=== PATIENT | male | born 1935 | race Caucasian/White ===

== ENCOUNTER → 2016-09-01 | Outpatient (CLI) | payer MEDICARE, BC ==
[~2016-09-01] MED LIST: DRON400 PO; PRIN10TA PO; TOPR50TA PO; WARF2.5 PO; WARF5TAB PO
[2016-09-01 08:52] LABS: INTERNATIONAL NORMALIZED RATIO 2.4 RATIO; PROTHROMBIN TIME - PATIENT 27.4 SEC (9.8-11.6)
== END ==
LOC: PLAB 06:43
PROVIDERS: ATTEND Internal Medicine Cardiovascular Disease
DX: Z95.2 Presence of prosthetic heart valve (principal)
CPT/HCPCS: 36415; 85610

== ENCOUNTER → 2016-09-15 | Outpatient (CLI) | payer MEDICARE, BC ==
[2016-09-15 08:59] LABS: INTERNATIONAL NORMALIZED RATIO 2.8 RATIO; PROTHROMBIN TIME - PATIENT 32.1 SEC (9.8-11.6)
== END ==
LOC: PLAB 07:01
PROVIDERS: ATTEND Internal Medicine Cardiovascular Disease
DX: Z95.2 Presence of prosthetic heart valve (principal)
CPT/HCPCS: 36415; 85610

== ENCOUNTER → 2016-10-13 | Outpatient (CLI) | payer MEDICARE, BC ==
[2016-10-13 08:36] LABS: INTERNATIONAL NORMALIZED RATIO 2.9 RATIO
== END ==
LOC: PLAB 06:58
PROVIDERS: ATTEND Internal Medicine Cardiovascular Disease
DX: Z95.2 Presence of prosthetic heart valve (principal)
CPT/HCPCS: 36415; 85610

== ENCOUNTER → 2016-11-10 | Outpatient (CLI) | payer MEDICARE, BC ==
[2016-11-10 08:50] LABS: INTERNATIONAL NORMALIZED RATIO 2.2 RATIO
== END ==
LOC: PLAB 06:54
PROVIDERS: ATTEND Internal Medicine Cardiovascular Disease
DX: Z95.2 Presence of prosthetic heart valve (principal)
CPT/HCPCS: 36415; 85610

== ENCOUNTER → 2016-11-24 | Outpatient (CLI) | payer MEDICARE, BC ==
[2016-11-24 08:49] LABS: INTERNATIONAL NORMALIZED RATIO 2.3 RATIO; PROTHROMBIN TIME - PATIENT 25.9 SEC (9.8-11.6)
== END ==
LOC: PLAB 06:39
PROVIDERS: ATTEND Internal Medicine Cardiovascular Disease
DX: Z95.2 Presence of prosthetic heart valve (principal)
CPT/HCPCS: 36415; 85610

== ENCOUNTER → 2016-12-08 | Outpatient (CLI) | payer MEDICARE, BC ==
[2016-12-08 08:34] LABS: INTERNATIONAL NORMALIZED RATIO 2.9 RATIO; PROTHROMBIN TIME - PATIENT 33.8 SEC (9.8-11.6)
== END ==
LOC: PLAB 06:39
PROVIDERS: ATTEND Internal Medicine Cardiovascular Disease
DX: Z95.2 Presence of prosthetic heart valve (principal)
CPT/HCPCS: 36415; 85610

== ENCOUNTER → 2017-01-05 | Outpatient (CLI) | payer MEDICARE, BC ==
[2017-01-05 08:41] LABS: INTERNATIONAL NORMALIZED RATIO 3.1 RATIO; PROTHROMBIN TIME - PATIENT 36.3 SEC (9.8-11.6)
== END ==
LOC: PLAB 06:39
PROVIDERS: ATTEND Internal Medicine Cardiovascular Disease
DX: Z95.2 Presence of prosthetic heart valve (principal)
CPT/HCPCS: 36415; 85610

== ENCOUNTER → 2017-02-02 | Outpatient (CLI) | payer MEDICARE, BC ==
[2017-02-02 09:00] LABS: INTERNATIONAL NORMALIZED RATIO 3.7 RATIO; PROTHROMBIN TIME - PATIENT 43.3 SEC (9.8-11.6)
== END ==
LOC: PLAB 06:59
PROVIDERS: ATTEND Internal Medicine Cardiovascular Disease
DX: Z95.2 Presence of prosthetic heart valve (principal)
CPT/HCPCS: 36415; 85610

== ENCOUNTER → 2017-03-09 | Outpatient (CLI) | payer MEDICARE, BC ==
[2017-03-09 10:24] LABS: INTERNATIONAL NORMALIZED RATIO 2.8 RATIO; PROTHROMBIN TIME - PATIENT 32.1 SEC (9.8-11.6)
== END ==
LOC: PLAB 09:01
PROVIDERS: ATTEND Internal Medicine Cardiovascular Disease
DX: Z95.2 Presence of prosthetic heart valve (principal)
CPT/HCPCS: 36415; 85610

== ENCOUNTER → 2017-04-06 | Outpatient (CLI) | payer MEDICARE, BC ==
[2017-04-06 09:02] LABS: INTERNATIONAL NORMALIZED RATIO 3.4 RATIO; PROTHROMBIN TIME - PATIENT 39.6 SEC (9.8-11.6)
== END ==
LOC: PLAB 06:46
PROVIDERS: ATTEND Internal Medicine Cardiovascular Disease
DX: Z95.2 Presence of prosthetic heart valve (principal)
CPT/HCPCS: 36415; 85610

== ENCOUNTER → 2017-04-19 | Outpatient (CLI) | payer MEDICARE, BC ==
[2017-04-19 12:44] LABS: BICARBONATE 27.6 MEQ/L (21.0-32.0); POTASSIUM 4.2 MEQ/L (3.5-5.1)
== END ==
LOC: CLAB 11:59
PROVIDERS: ATTEND Internal Medicine Cardiovascular Disease
DX: I65.29 Occlusion and stenosis of unspecified carotid artery (principal)
CPT/HCPCS: 36415; 80048

== ENCOUNTER → 2017-05-11 | Outpatient (CLI) | payer MEDICARE, BC ==
[2017-05-11 09:03] LABS: INTERNATIONAL NORMALIZED RATIO 4.3 RATIO; PROTHROMBIN TIME - PATIENT 50.6 SEC (9.8-11.6)
== END ==
LOC: PLAB 06:44
PROVIDERS: ATTEND Internal Medicine Cardiovascular Disease
DX: Z95.2 Presence of prosthetic heart valve (principal)
CPT/HCPCS: 36415; 85610

== ENCOUNTER → 2017-05-18 | Outpatient (CLI) | payer MEDICARE, BC ==
[2017-05-18 08:55] LABS: INTERNATIONAL NORMALIZED RATIO 3.4 RATIO; PROTHROMBIN TIME - PATIENT 39.5 SEC (9.8-11.6)
== END ==
LOC: PLAB 06:56
PROVIDERS: ATTEND Internal Medicine Cardiovascular Disease
DX: Z95.2 Presence of prosthetic heart valve (principal)
CPT/HCPCS: 36415; 85610

== ENCOUNTER → 2017-06-01 | Outpatient (CLI) | payer MEDICARE, BC ==
[2017-06-01 08:46] LABS: INTERNATIONAL NORMALIZED RATIO 3.6 RATIO; PROTHROMBIN TIME - PATIENT 42.6 SEC (9.8-11.6)
== END ==
LOC: PLAB 06:45
PROVIDERS: ATTEND Internal Medicine Cardiovascular Disease
DX: Z95.2 Presence of prosthetic heart valve (principal)
CPT/HCPCS: 36415; 85610

== ENCOUNTER → 2017-06-29 | Outpatient (CLI) | payer MEDICARE, BC ==
[2017-06-29 09:06] LABS: INTERNATIONAL NORMALIZED RATIO 2.1 RATIO; PROTHROMBIN TIME - PATIENT 24.4 SEC (9.8-11.6)
== END ==
LOC: PLAB 06:51
PROVIDERS: ATTEND Internal Medicine Cardiovascular Disease
DX: Z95.2 Presence of prosthetic heart valve (principal)
CPT/HCPCS: 36415; 85610

== ENCOUNTER → 2017-07-06 | Outpatient (CLI) | payer MEDICARE, BC ==
[2017-07-06 08:45] LABS: PROTHROMBIN TIME - PATIENT 35.4 SEC (9.8-11.6)
== END ==
LOC: PLAB 06:42
PROVIDERS: ATTEND Internal Medicine Cardiovascular Disease
DX: Z95.2 Presence of prosthetic heart valve (principal)
CPT/HCPCS: 36415; 85610

== ENCOUNTER → 2017-08-02 | Outpatient (CLI) | payer MEDICARE, BC ==
[~2017-08-02] MED LIST changes: +CARD180C5 PO; +DILA2TAB4 PO; +DILT240C44 PO; +LISI10TA3 PO; +METO25TA3 PO; +MULT400T PO; +WARF-18 PO; +WARF-23 PO
[2017-08-02 09:10] LABS: PROTHROMBIN TIME - PATIENT 93.9 SEC (9.8-11.6)
[2017-08-02 09:34] LABS: INTERNATIONAL NORMALIZED RATIO 9.4 RATIO
== END ==
LOC: PLAB 06:41
PROVIDERS: ATTEND Internal Medicine Cardiovascular Disease
DX: Z95.2 Presence of prosthetic heart valve (principal)
CPT/HCPCS: 36415; 85610

== ENCOUNTER → 2017-08-03 | Outpatient (CLI) | payer MEDICARE, BC ==
[2017-08-03 09:00] LABS: PROTHROMBIN TIME - PATIENT 70.6 SEC (9.8-11.6)
[2017-08-03 09:23] LABS: INTERNATIONAL NORMALIZED RATIO 7.1 RATIO
[2017-08-03 10:00] LABS: HEMATOCRIT 32.8 % (39.0-51.0); REVIEW FLAG FINAL
== END ==
LOC: PLAB 06:48
PROVIDERS: ATTEND Internal Medicine Cardiovascular Disease
DX: I48.91 Unspecified atrial fibrillation (principal); Z95.2 Presence of prosthetic heart valve
CPT/HCPCS: 36415; 85014; 85018; 85610

== ENCOUNTER 2017-08-04 16:46 | Inpatient (IN) | payer MEDICARE, BC ==
[~2017-08-04] VITALS: Ht 175.3 cm; Wt 67.6 kg
[2017-08-04] VITALS (9 sets, daily range): BP systolic 149–224; BP diastolic 63–98; PULSE 89–121; RESP 16–18; TEMP 97.9–98.4; O2SAT 93–100
[~2017-08-04 16:46] MED LIST changes: -CARD180C5 PO; -DILA2TAB4 PO; -DILT240C44 PO; -LISI10TA3 PO; -METO25TA3 PO; -MULT400T PO; -WARF-18 PO; -WARF-23 PO
--- NOTE | 2017-08-04 17:22 | PD ---
HPI Chief Complaint: Lump, Cyst, Hernia Time Seen by Provider: 16:55 Travel History International Travel<30 days: No Contact w/Intl Traveler<30days: No History of Present Illness HPI 82yo M with PMH of afib, aortic valve replacement on coumadin, possible right carotid endartectomy, right inguinal hernia here with c/o pain in right inguinal hernia for 2 hours. Said he had a repair few years ago and he normally is able to push back but cant today. Denies any fever, chest pain, sob , n/v, abdominal pain, testicular pain, dysuria, hematuria, focal weakness or numbness. Dr. Pugh is his cash register operator. Pt was discharge from [facility] about 2 weeks ago. He is a poor historian. Said he was off coumadin for 3 days. PFSH Past Medical History Hx Anticoagulant Therapy: Yes (WARFRIN) Cardiovascular Problems: Yes (ARTIFICIAL VALVE) Chemotherapy: No Cerebrovascular Accident: No Diabetes: No Diminished Hearing: No Hypertension: Yes Respiratory: No Immunizations Current: No Past Surgical History Abdominal Surgery: Yes (LT INGUINAL HERNIA REPAIR) Body Medical Devices: ANUERSYM Cardiac Surgery: Yes (AORTIC VALVE REPLACED) Tonsillectomy: Yes Other Surgery: Yes (EXP LAP) Social History Alcohol Use: Yes (1 GLASS WINE, NIGHTLY WITH DINNER) Tobacco Use: No Substance Use: No Allergies-Medications (Allergen,Severity, Reaction): Coded Allergies: aspirin (Verified Allergy, Severe, Bleeding, 08/04/17) Reported Meds & Prescriptions Reported Meds & Active Scripts Active Reported Warfarin 5 Mg Tab 5 Mg PO WEEKLY Warfarin 2.5 Mg Tab 2.5 Mg PO DAILY Lisinopril 10 Mg Tab 10 Mg PO DAILY Multaq (Dronedarone) 400 Mg Tab 400 Mg PO BID Review of Systems Except as stated in HPI: all other systems reviewed are Neg Physical Exam Narrative GENERAL: 82yo M in mild distress. SKIN: Focused skin assessment warm/dry. HEAD: Atraumatic. Normocephalic. EYES: Pupils equal and round. No scleral icterus. No injection or drainage. CARDIOVASCULAR: Regular rate and rhythm. No murmur appreciated. RESPIRATORY: No accessory muscle use. Clear to auscultation. Breath sounds equal bilaterally. GASTROINTESTINAL: Abdomen soft, non-tender, nondistended. : +4cm by 3cm right inguinal mass that feels hard. Attempted to reduce it but unable to. No ttp bilateral testicles. MUSCULOSKELETAL: No obvious deformities. No clubbing. No cyanosis. No edema. NEUROLOGICAL: Awake and alert. No obvious cranial nerve deficits. Motor grossly within normal limits. Normal speech. PSYCHIATRIC: Appropriate mood and affect; insight and judgment normal. Data Data Last Documented VS Vital Signs Date Time Temp Pulse Resp B/P (MAP) Pulse Ox O2 Delivery O2 Flow Rate FiO2 08/04/17 18:59 104 16 187/72 (110) 94 Room Air 08/04/17 16:52 97.9 Orders Orders Complete Blood Count With Diff (08/04/17 17:20) Basic Metabolic Panel (Bmp) (08/04/17 17:20) Morphine Inj (Morphine Inj) (08/04/17 17:30) Prothrombin Time / Inr (Pt) (08/04/17 17:20) Act Partial Throm Time (Ptt) (08/04/17 17:20) Ct Abd/Pel W Iv Contrast(Rout) (08/04/17 ) Urinalysis - C+S If Indicated (08/04/17 18:02) Iohexol 350 Inj (Omnipaque 350 Inj) (08/04/17 18:33) Diltiazem Inj (Cardizem Inj) (08/04/17 19:15) Phytonadione Inj (Vitamin K Inj) (08/04/17 20:00) Fresh Frozen Plasma (Ffp) (08/04/17 19:22) Blood Product Administration (08/04/17 19:22) Sodium Chlor 0.9% 250 Ml Inj (Ns 250 Ml (08/04/17 19:30) Type And Screen (08/04/17 19:22) Patient Transfer (08/04/17 ) Admit Order (Ed Use Only) (08/04/17 19:26) Labs Laboratory Tests Test 08/04/17 17:20 08/04/17 18:15 White Blood Count 7.5 TH/MM3 Red Blood Count 3.20 MIL/MM3 Hemoglobin 11.0 GM/DL Hematocrit 33.4 % Mean Corpuscular Volume 104.4 FL Mean Corpuscular Hemoglobin 34.3 PG Mean Corpuscular Hemoglobin Concent 32.8 % Red Cell Distribution Width 14.1 % Platelet Count 271 TH/MM3 Mean Platelet Volume 7.2 FL Neutrophils (%) (Auto) 77.3 % Lymphocytes (%) (Auto) 11.5 % Monocytes (%) (Auto) 8.5 % Eosinophils (%) (Auto) 0.7 % Basophils (%) (Auto) 2.0 % Neutrophils # (Auto) 5.7 TH/MM3 Lymphocytes # (Auto) 0.9 TH/MM3 Monocytes # (Auto) 0.6 TH/MM3 Eosinophils # (Auto) 0.1 TH/MM3 Basophils # (Auto) 0.2 TH/MM3 CBC Comment DIFF FINAL Differential Comment Prothrombin Time 43.1 SEC Prothromb Time International Ratio 4.3 RATIO Activated Partial Thromboplast Time 46.7 SEC Blood Urea Nitrogen 13 MG/DL Creatinine 0.91 MG/DL Random Glucose 105 MG/DL Calcium Level 8.7 MG/DL Sodium Level 137 MEQ/L Potassium Level 3.9 MEQ/L Chloride Level 102 MEQ/L Carbon Dioxide Level 26.2 MEQ/L Anion Gap 9 MEQ/L Estimat Glomerular Filtration Rate 80 ML/MIN Urine Collection Type CLEAN CATCH Urine Color YELLOW Urine Turbidity CLEAR Urine pH 6.0 Urine Specific [place] 1.020 Urine Protein TRACE mg/dL Urine Glucose (UA) NEG mg/dL Urine Ketones 15 mg/dL Urine Occult Blood SMALL Urine Nitrite NEG Urine Bilirubin NEG Urine Leukocyte Esterase NEG Urine RBC 15-19 /hpf Urine Squamous Epithelial Cells 0-5 /hpf Microscopic Urinalysis Comment CULT NOT INDICATED Urine Collection Time 18:15 MDM Medical Decision Making Medical Screen Exam Complete: Yes Emergency Medical Condition: Yes Interpretation(s) EKG: Afib at 106bpm. TWI I, aVL, V6. Differential Diagnosis Incarcerated hernia vs. fat containing hernia vs. hematoma vs. pseudoaneurysm Narrative Course 82yo M with right inguinal hernia here with c/o painful lump in right groin for 2 hours today. Said he usually is able to push it back in but could not today. He did have a bowel movement prior to this. Labs reviewed, no leukocytosis. H/H 11/33.4 which is around baseline. BMP unremarkable. INR supratherapeutic at 4.3. UA showed small blood. RBC 15-19. Culture not indicated. Right inguinal mass feels hard and unable to manually reduce it. Will do CT a/p+ to further evaluate this mass. CT a/p showed right inguinal hernia containing loop of small bowel with associated at least partial small bowel obstruction. Bilateral pleural effusions, left greater than right. Pt reevaluated at bedside and HR is fluctuating between low 100s to high 120s. BP is elevated at 182/72. Pt given cardizem 20mg IV. Discussed with Dr. Block from general surgery at 19:07 and he recommends medicine admission, transfer to [facility] and reverse coagulopathy so he can do surgery. Vitamin K and FFP ordered. I discussed with bolt cutter Dr. Brizuela and he accepted him to his service. Pt reevaluated at bedside and HR is 80s-90, BP 172/95. Pt denies any chest pain or sob. Pt to be transferred to [facility]. Critical Care Narrative Aggregate critical care time was 40 minutes. Time to perform other separately billable procedures was not included in the critical care time. My time did not include minutes spent treating any other patients simultaneously or on activities that did not directly contribute to the patient's treatment. The services I provided to this patient were to treat and/or prevent clinically significant deterioration that could result in: cardiovascular collapse or . I provided critical care services requiring my management, as noted below: Chart data review, documentation time, medication orders and management, vital sign assessments/reviewing monitor data, ordering and reviewing lab tests, ordering and interpreting/reviewing x-rays and diagnostic studies, care of the patient and discussion of the patient with the admitting physicians. Diagnosis Primary Impression: Incarcerated hernia Additional Impressions: Supratherapeutic INR Atrial fibrillation with RVR Admitting Information Admitting Physician Requests: Admit Ana Andrews DO Aug 04, 2017 17:22
[2017-08-04] MEDS ORDERED: MORPHINE SULFATE 2 MG/ML INJ IV PUSH ONE (17:30)
[2017-08-04 17:32] LABS: AUTOMATED NEUTROPHIL # 5.7 TH/MM3 (1.8-7.7); BASOPHIL # 0.2 TH/MM3 (0-0.2); EOSINOPHIL # 0.1 TH/MM3 (0-0.4); EOSINOPHIL % 0.7 % (0.0-4.0); HEMATOCRIT 33.4 % (39.0-51.0); LYMPH % 11.5 % (9.0-44.0); LYMPHOCYTE # 0.9 TH/MM3 (1.0-4.8); MEAN CELL VOLUME 104.4 FL (80.0-100.0); MEAN CORPUSCULAR HEMOGLOBIN 34.3 PG (27.0-34.0); MEAN CORPUSCULAR HGB CONC 32.8 % (32.0-36.0); MONO % 8.5 % (0.0-8.0); NEUT % 77.3 % (16.0-70.0); PLATELET COUNT 271 TH/MM3 (150-450); RED CELL DISTRIBUTION WIDTH 14.1 % (11.6-17.2); WHITE BLOOD COUNT 7.5 TH/MM3 (4.0-11.0)
[2017-08-04 17:37] LABS: POTASSIUM 3.9 MEQ/L (3.5-5.1)
[2017-08-04 17:40] LABS: BICARBONATE 26.2 MEQ/L (21.0-32.0); HEMO FLAGS DIFF FINAL
[2017-08-04 17:44] LABS: APTT (PATIENT) 46.7 SEC (24.3-30.1); INTERNATIONAL NORMALIZED RATIO 4.3 RATIO; PROTHROMBIN TIME - PATIENT 43.1 SEC (9.8-11.6)
[2017-08-04] MEDS ORDERED: MULT400T PO ×2 (18:13)
[2017-08-04] MEDS ORDERED: WARF-18 PO ×2 (18:13)
[2017-08-04] MEDS ORDERED: WARF-23 PO ×2 (18:13)
[2017-08-04] MEDS ORDERED: LISI10TA3 PO ×2 (18:13)
[2017-08-04 18:20] LABS: BLOOD, URINE SMALL (NEG); GLUCOSE,URINE NEG (NEG); KETONE, URINE 15 mg/dL (NEG); NITRITE,URINE NEG (NEG)
[2017-08-04 18:24] LABS: METHOD OF COLLECTION CLEAN CATCH; RBC, URINE 15-19 /hpf (0-3); URINE COLOR YELLOW (YELLW/STRAW)
[2017-08-04 18:25] LABS: COMMENT (UR) CULT NOT INDICATED; CULTURE IF INDICATED CULT NOT INDICATED; SQUAMOUS EPITHELIAL CELL URINE 0-5 /hpf (0-5)
[2017-08-04] MEDS ORDERED: IOHEXOL 350 MG/ML 10 ML VIAL (for RAD DIAG) IVCONTRAST ONE (18:33)
--- NOTE | 2017-08-04 18:53 | RADRPT ---
EXAM DATE/TIME: 08/04/2017 18:21 [place] COMPARISON: No previous studies available for comparison. INDICATIONS : Right inguinal pain. Evaluate for right inguinal hernia. IV CONTRAST: 85 cc Omnipaque 350 (iohexol) IV ORAL CONTRAST: No oral contrast ingested. RADIATION DOSE: 6.04 CTDIvol (mGy) MEDICAL HISTORY : Cardiovascular disease. Hypertension. SURGICAL HISTORY : Carotid endarterectomy. Inguinal hernia repair.Aortic valve replacement. ENCOUNTER: Initial ACUITY: 1 day PAIN SCALE: 6/10 LOCATION: Right inguinal TECHNIQUE: Volumetric scanning of the abdomen and pelvis was performed. Using automated exposure control and ad justment of the mA and/or kV according to patient size, radiation dose was kept as low as reasonably achievable to obtain optimal diagnostic quality images. DICOM format image data is available electro nically for review and comparison. FINDINGS: There is a right-sided inguinal hernia containing a loop of small bowel. This is associated with some dilatation of distal small bowel loops characteristic of a partial small bowel obstruction. Bilateral pleural effusions, left greater than right pleural calcifications at the right lung base. B ibasilar atelectasis and scarring. No acute findings in the liver and spleen. Small low-attenuation lesions probably represent small cys ts. No acute findings in the adrenals, kidneys or pancreas. Gallstones present in gallbladder. CONCLUSION: 1. Right inguinal hernia containing loop of small bowel with associated at least partial small bowel obstruction. 2. Bilateral pleural effusions, left greater than right with basilar atelectasis and scarring and rig ht pleural calcifications. Manjinder Villatoro MD on August 04, 2017 at 18:47 Board Certified Radiologist. This report was verified electronically.
[2017-08-04] MEDS ORDERED: DILTIAZEM HCL 25 MG/5 ML VIAL IV ONE (19:15)
[2017-08-04] MEDS ORDERED: CHLORHEXIDINE GLUCONATE 2 % 1 PACK (2 CLOTHS) TOP PRN (19:30)
[2017-08-04] MEDS ORDERED: MISCELLANEOUS NURSING INFORMATION XX SCH (19:30)
[2017-08-04] MEDS ORDERED: SODIUM CHLOR 0.9% 250 ML INJ 250 ML IV ONE ×2 (19:30)
[2017-08-04] MEDS ORDERED: ONDANSETRON HCL 4 MG/2 ML VIAL IV PUSH PRN (19:30)
[2017-08-04] MEDS ORDERED: RESP: ALBUTEROL 2.5 MG/IPRATROPIUM 0.5 MG NEB (PRN) INH (19:30)
[2017-08-04] MEDS ORDERED: PHYTONADIONE INJ 10 MG in SODIUM CHLORIDE 0.9% INJ 50 ML IV ONE (20:00)
[2017-08-04] MEDS ORDERED: FUROSEMIDE 40 MG/4 ML VIAL IV PUSH ONE (21:00)
--- NOTE | 2017-08-04 23:23 | HHI.HP ---
[facility] Service Critical Care Medicine Primary Care Physician Thad Hackett MD Admission Diagnosis Incarcerated hernia, partial small bowel obstruction Diagnosis: Chief Complaint: abdominal pain Travel History International Travel<30 Days: No Contact w/Intl Traveler <30 Da: No Traveled to Known Affected Are: No History of Present Illness This is an 82yM with history of aortic valve replacement on chronic coumadin therapy who presents with 2 hours of right inguinal pain. He was found to have incarcerated hernia by CT evidence and clinical exam. He denies any symptoms of nausea, vomiting, but does endorse worsening abdominal pain. General surgery was consulted and is planning to take him for urgent operation in the morning. He has a supratherapeutic INR at 4.3. we have been asked to medically optimize the patient prior to urgent surgery. Of note, he does have a history of a recent right CEA ~ 2 weeks ago at [facility], which he had without complication. The patient is a poor historian and at times has trouble with his medical history. The patient states that his operations expert is Dr. Pugh and clears him for surgery before every case. He states he does not routinely walk up stairs, but he does state that yesterday he went to the mall and walked around "all day with no problem at all." denies any chest pain, dyspnea on exertion, shortness of breath. no changes in exercise tolerance, although he does remark that he does not find a need to climb stairs much. He does have a mechanical aortic valve and has recently been re-coumadinized from his CEA. Review of Systems Constitutional: DENIES: Diaphoretic episodes, Fatigue, Fever, Weight loss, Chills, Change in appetite Respiratory: DENIES: Apneas, Cough, Wheezing, Hemoptysis, Sputum production, Shortness of breath Cardiovascular: DENIES: Chest pain, Palpitations, Syncope, Dyspnea on Exertion , PND, Lower Extremity Edema Gastrointestinal: COMPLAINS OF: Abdominal pain, DENIES: Black stools, Bloody stools, Constipation, Diarrhea, Nausea, Vomiting Genitourinary: DENIES: Urinary frequency, Urinary incontinence, Testicular Pain , Testicular Swelling Neurologic: DENIES: Headache, Localized weakness Psychiatric: DENIES: Confusion Past Family Social History Allergies: Coded Allergies: aspirin (Verified Allergy, Severe, Bleeding, 08/04/17) Past Medical History Aortic valve replacement: mechanical Hypertension Past Surgical History left inguinal hernia repair aortic valve replacement tonsillectomy Reported Medications Warfarin 5 Mg Tab 5 Mg PO WEEKLY Warfarin 2.5 Mg Tab 2.5 Mg PO DAILY Lisinopril 10 Mg Tab 10 Mg PO DAILY Multaq (Dronedarone) 400 Mg Tab 400 Mg PO BID Review of Systems Except as stated in HPI: all other systems reviewed are Neg Physical Exam Narrative GENERAL: 82yo M in mild distress. SKIN: Focused skin assessment warm/dry. HEAD: Atraumatic. Normocephalic. EYES: Pupils equal and round. No scleral icterus. No injection or drainage. CARDIOVASCULAR: Regular rate and rhythm. No murmur appreciated. RESPIRATORY: No accessory muscle use. Clear to auscultation. Breath sounds equal bilaterally. GASTROINTESTINAL: Abdomen soft, non-tender, nondistended. : +4cm by 3cm right inguinal mass that feels hard. Attempted to reduce it but unable to. No ttp bilateral testicles. MUSCULOSKELETAL: No obvious deformities. No clubbing. No cyanosis. No edema. NEUROLOGICAL: Awake and alert. No obvious cranial nerve deficits. Motor grossly within normal limits. Normal speech. PSYCHIATRIC: Appropriate mood and affect; insight and judgment normal. Data Active Ordered Medications See MAR Family History reviewed and found to be noncontributory to his acute illness. Social History 1 glass of wine nightly with dinner. no tob, no doa. Physical Exam Vital Signs Vital Signs Date Time Temp Pulse Resp B/P (MAP) Pulse Ox O2 Delivery O2 Flow Rate FiO2 08/04/17 22:58 98.4 89 16 165/76 93 08/04/17 21:28 91 16 156/63 (94) 94 Room Air 08/04/17 18:59 104 16 187/72 (110) 94 Room Air 08/04/17 18:56 16 08/04/17 18:20 121 18 172/95 (120) 97 Room Air 08/04/17 17:45 118 149/89 (109) 97 Room Air 08/04/17 16:52 97.9 103 18 224/98 (140) 98 Room Air Physical Exam GENERAL: Elderly male, lying in bed, slight distress due to pain HEENT: Normocephalic. Atraumatic. Pupils equal, round, reactive, conjugate. Mucous membranes are moist NECK: Trachea is midline. There is no JVD. There is a well-healing incision over the right anterior neck consistent with a healing incision from a carotid endarterectomy CHEST: Equal chest rise. Nasal cannula oxygen. CARDIOVASCULAR: Normal rate, regular rhythm. ABDOMEN: Soft, mildly tender to palpation in the right lower quadrant below the inguinal ring, nondistended. No guarding. There is a small tender lump just inferior to the inguinal ring consistent with incarcerated loop of bowel. MUSCULOSKELETAL: Pulses 2+. No peripheral edema. NEUROLOGICAL: RASS 0. GCS 15. Follows commands. No focal deficits. Laboratory Laboratory Tests Test 08/04/17 17:20 08/04/17 18:15 White Blood Count 7.5 Red Blood Count 3.20 Hemoglobin 11.0 Hematocrit 33.4 Mean Corpuscular Volume 104.4 Mean Corpuscular Hemoglobin 34.3 Mean Corpuscular Hemoglobin Concent 32.8 Red Cell Distribution Width 14.1 Platelet Count 271 Mean Platelet Volume 7.2 Neutrophils (%) (Auto) 77.3 Lymphocytes (%) (Auto) 11.5 Monocytes (%) (Auto) 8.5 Eosinophils (%) (Auto) 0.7 Basophils (%) (Auto) 2.0 Neutrophils # (Auto) 5.7 Lymphocytes # (Auto) 0.9 Monocytes # (Auto) 0.6 Eosinophils # (Auto) 0.1 Basophils # (Auto) 0.2 CBC Comment DIFF FINAL Differential Comment Prothrombin Time 43.1 Prothromb Time International Ratio 4.3 Activated Partial Thromboplast Time 46.7 Blood Urea Nitrogen 13 Creatinine 0.91 Random Glucose 105 Calcium Level 8.7 Sodium Level 137 Potassium Level 3.9 Chloride Level 102 Carbon Dioxide Level 26.2 Anion Gap 9 Estimat Glomerular Filtration Rate 80 Urine Collection Type CLEAN CATCH Urine Color YELLOW Urine Turbidity CLEAR Urine pH 6.0 Urine Specific [place] 1.020 Urine Protein TRACE Urine Glucose (UA) NEG Urine Ketones 15 Urine Occult Blood SMALL Urine Nitrite NEG Urine Bilirubin NEG Urine Leukocyte Esterase NEG Urine RBC 15-19 Urine Squamous Epithelial Cells 0-5 Microscopic Urinalysis Comment CULT NOT INDICATED Urine Collection Time 18:15 Result Diagram: 08/04/17 1720 08/04/17 1720 Imaging Last Impressions Abdomen/Pelvis CT 08/04/17 0000 Signed Impressions: Service Date/Time: July 18:21 - CONCLUSION: 1. Right inguinal hernia containing loop of small bowel with associated at least partial small bowel obstruction. 2. Bilateral pleural effusions, left greater than right with basilar atelectasis and scarring and right pleural calcifications. Manjinder Villatoro MD Septic Shock Reassessment Septic shock perfusion: reassessment completed Caprini VTE Risk Assessment Caprini VTE Risk Assessment: Mod/High Risk (score >= 2) Caprini Risk Assessment Model Point Value = 1 Point Value = 2 Point Value = 3 Point Value = 5 Age 41-60 Minor surgery BMI > 25 kg/m2 Swollen legs Varicose veins or History of unexplained or recurrent spontaneous Oral contraceptives or hormone replacement Sepsis (< 1 month) Serious lung disease, including pneumonia (< 1 month) Abnormal pulmonary function Acute myocardial infarction Congestive heart failure (< 1 month) History of inflammatory bowel disease Medical patient at bed rest Age 61-74 Arthroscopic surgery Major open surgery (> 45 min) Laparoscopic surgery (> 45 min) Malignancy Confined to bed (> 72 hours) Immobilizing plaster cast Central venous access Age >= 75 History of VTE Family history of VTE Factor V Leiden Prothrombin [id number] Lupus anticoagulant Anticardiolipin antibodies Elevated serum homocysteine Heparin-induced thrombocytopenia Other congenital or acquired thrombophilia Stroke (< 1 month) Elective arthroplasty Hip, pelvis, or leg fracture Acute spinal cord injury (< 1 month) Prophylaxis Regimen Total Risk Factor Score Risk Level Prophylaxis Regimen 0-1 Low Early ambulation 2 Moderate Order ONE of the following: *Sequential Compression Device (SCD) *Heparin 5000 units SQ BID 3-4 Higher Order ONE of the following medications: *Heparin 5000 units SQ TID *Enoxaparin/Lovenox 40 mg SQ daily (WT < 150 kg, CrCl > 30 mL/min) *Enoxaparin/Lovenox 30 mg SQ daily (WT < 150 kg, CrCl > 10-29 mL/min) *Enoxaparin/Lovenox 30 mg SQ BID (WT < 150 kg, CrCl > 30 mL/min) AND/OR *Sequential Compression Device (SCD) 5 or more Highest Order ONE of the following medications: *Heparin 5000 units SQ TID (Preferred with Epidurals) *Enoxaparin/Lovenox 40 mg SQ daily (WT < 150 kg, CrCl > 30 mL/min) *Enoxaparin/Lovenox 30 mg SQ daily (WT < 150 kg, CrCl > 10-29 mL/min) *Enoxaparin/Lovenox 30 mg SQ BID (WT < 150 kg, CrCl > 30 mL/min) AND *Sequential Compression Device (SCD) Assessment and Plan Assessment and Plan Assessment: 82yM with aortic valve replacement on chronic anticoagulation with coumadin presents with incarcerated hernia. General surgery has been consulted. we will reverse anticoagulation with 4 units FFP and re-check INR. goal to get INR < 1.7 for OR in the AM. keep NPO. pain control with iv hydromorphone. admit to the floor. will dose lasix 40mg iv between FFP so as not to volume overload the patient. Regarding his pre-operative cardiac risk stratification: Patient has recently undergone major open vascular surgery without complication. He has not had any changes to his exercise tolerance and exhibits no signs of ACS or decompensated CHF. Technically, patient qualifies for 3 METs given his level of activity, but per report appears to be active without dyspneic symptoms limiting his activity. Patient would qualify as intermediate cardiac risk for an intermediate risk surgical procedure such as inguinal herniorrhaphy with possible small bowel resection. No additional information or pre-operative testing is necessary. Patient is medically cleared for urgent operation. Coumadin Coagulopathy - ffp x 4 units - recheck INR - daily INRs - goal INR < 1.7 for surgery tomorrow - vit k. Incarcerated Hernia - NPO - NG tube to LIWS - general surgery consult - plan for OR tomorrow Acute abdominal pain associated with incarcerated hernia - dilaudid 0.5 mg iv q4h prn Mechanical aortic valve replacement - will need re-coumadinization after surgery - at patient's request, will consult Dr. Pugh to follow along Hypertension - hold home anti-hypertensives in preparation for OR tomorrow. will restart as needed to keep normotensive. SCDs reversing anticoagulation. Admit to floor. will consult hospitalist service to assume care tomorrow. Code Status Full Code Discussed Condition With ER physician, Niko Prasad MD Aug 04, 2017 23:23
[2017-08-04] MEDS: HYDROmorphone HCL PF 2 MG/ML VIAL IV PUSH PRN (23:40)
[2017-08-05] VITALS (21 sets, daily range): BP systolic 105–190; BP diastolic 55–106; PULSE 86–120; RESP 16–22; TEMP 97.4–99.2; O2SAT 93–99
[2017-08-05] MEDS ORDERED: hydrALAZINE HCL 20 MG/ML VIAL IV ONE (02:45)
[2017-08-05 03:05] LABS: APTT (PATIENT) 30.1 SEC (24.3-30.1); INTERNATIONAL NORMALIZED RATIO 1.3 RATIO; PROTHROMBIN TIME - PATIENT 13.4 SEC (9.8-11.6)
[2017-08-05] MEDS: CHLORHEXIDINE GLUCONATE 2 % 1 PACK (2 CLOTHS) TOP SCH (04:00)
[2017-08-05] MEDS ORDERED: FUROSEMIDE 40 MG/4 ML VIAL IV PUSH ONE (04:00)
[2017-08-05] MEDS ORDERED: LACTATED RINGER'S 1000 ML IV PRN (05:00)
[2017-08-05] MEDS: HYDROmorphone HCL PF 2 MG/ML VIAL IV PUSH PRN ×2 (05:00→21:12)
[2017-08-05] MEDS ORDERED: CHLORHEXIDINE GLUCONATE 2 % 1 PACK (2 CLOTHS) TOPICAL PRN (05:00)
[2017-08-05] MEDS ORDERED: POVIDONE IODINE 5% (ANTISEPSIS KIT) 4 APPLICATIONS EACH NARE PRN (05:00)
[2017-08-05 06:01] LABS: HEMATOCRIT 32.2 % (39.0-51.0); MEAN CELL VOLUME 103.2 FL (80.0-100.0); MEAN CORPUSCULAR HEMOGLOBIN 35.9 PG (27.0-34.0); MEAN CORPUSCULAR HGB CONC 34.8 % (32.0-36.0); PLATELET COUNT 246 TH/MM3 (150-450); RED BLOOD COUNT 3.12 MIL/MM3 (4.50-5.90); RED CELL DISTRIBUTION WIDTH 14.2 % (11.6-17.2); REVIEW FLAG FINAL; WHITE BLOOD COUNT 10.7 TH/MM3 (4.0-11.0)
[2017-08-05] MEDS ORDERED: BUPIVACAINE/EPINEPHRINE 0.5% PF 30 ML VIAL ONE (06:32)
[2017-08-05] MEDS ORDERED: ceFAZolin INJ 1,000 MG VIAL ONE (07:00)
--- NOTE | 2017-08-05 08:03 | HHI.PR ---
cc: Manjinder Block MD Immediate Post Op Note Procedure Date: Aug 05, 2017 Pre Op Diagnosis: (1) Right groin mass (2) Atrial fibrillation with RVR (3) Supratherapeutic INR (4) Incarcerated hernia Post Op Diagnosis: (1) Incarcerated femoral hernia (2) Complicated unilateral incarcerated femoral hernia (3) Atrial fibrillation with RVR (4) Supratherapeutic INR (5) Incarcerated hernia Surgeon: Manjinder Block Bryologist(s): see or records Procedure: Repair of incarcerated right femoral hernia with plug Expiratory laparotomy to evaluate incarcerated bowel Findings: Incarcerated femoral hernia. Small bowel obstruction relieved with reduction of incarcerated hernia Anesthesia: General Drains: None IVF Patient to: PACU Patient Condition: Good Implant/Devices: SEE IMPLANT LOG (if applicable) Date/Time of Procedure: SEE SURGICAL CARE RECORD Manjinder Block MD Aug 05, 2017 08:03
[2017-08-05] MEDS ORDERED: DO NOT ADM ANY ANTICOAGULANT DRUGS PRN (08:17)
--- NOTE | 2017-08-05 08:58 | MB ---
cc: BETY BLOCK M.D. DATE OF CONSULTATION 08/05/2017 REASON FOR CONSULTATION Incarcerated hernia HISTORY This is an 82-year-old gentleman who came into the emergency room, was found to have an incarcerated hernia on the right groin. This was somewhat complicated by the fact that he is on Coumadin which is supratherapeutic with an INR of 4. He also is in atrial fibrillation with a rapid ventricular response. The other complicating factor is he has had an aortic valve replacement and recently had a carotid about two weeks ago. He came into the emergency room complaining of pain in his groin with some mild nausea. REVIEW OF SYSTEMS He has no fever, weight loss, chills, change in appetite. Respiratory, no shortness of breath or chest pain. He just has this groin pain. No neurologic or psychiatric problems, although he is slightly confused and a poor historian. PAST SURGICAL HISTORY 1. Aortic valve replacement 2. Hypertension 3. A right inguinal hernia 4. Left inguinal hernia with I believe a plug and patch. 5. He has a mechanical heart valve ALLERGIES HE IS ALLERGIC TO ASPIRIN. MEDICATIONS He takes: 1. Coumadin 2. Lisinopril 3. Dronedarone PHYSICAL EXAM On examination, he is an 82-year-old gentleman very thin, cooperative, poor historian anxious to get his hernia fixed. NECK: Supple. He has a carotid endarterectomy scar on the right side that is healing. CHEST: Clear. HEART: Irregularly irregular. ABDOMEN: Soft, numerous scars in the upper abdomen. He has had bilateral inguinal hernia scars. He has an incarcerated hernia, maybe femoral hernia. NEUROLOGIC: He is alert and oriented. LABORATORY DATA On laboratory data, he has a white count of 10, H&H 11/32. Chemistry is fairly normal. His INR was 4.3. Dr. Alfredo is correcting this. ASSESSMENT Incarcerated hernia on the right side. PLAN Operative intervention once his coagulopathy is reversed and his rate is controlled. Bety Block MD JSHON/KAROLINA /8:22 AM /8:33 AM
[2017-08-05] MEDS ORDERED: NEOSTIGMINE 5 MG/5 ML SYRINGE IV PUSH ONE (12:00)
[2017-08-05] MEDS ORDERED: PROPOFOL 200 MG/20 ML AMP IV ONE (12:00)
[2017-08-05] MEDS ORDERED: GLYCOPYRROLATE 1 MG/5 ML SYRINGE IV PUSH ONE (12:00)
[2017-08-05] MEDS ORDERED: DEXAMETHASONE SOD PHOS 4 MG/ML VIAL IV ONE (12:00)
[2017-08-05] MEDS ORDERED: ROCURONIUM INJ 50 MG/5 ML SYRINGE IV PUSH ONE (12:00)
[2017-08-05] MEDS ORDERED: METOPROLOL TARTRATE 5 MG/5 ML VIAL IV PUSH ONE (12:00)
[2017-08-05] MEDS ORDERED: ESMOLOL HCL 100 MG/10 ML VIAL IV ONE (12:00)
[2017-08-05] MEDS ORDERED: PHENYLEPHRINE HCL 10 MG/ML VIAL IV ONE (12:00)
[2017-08-05] MEDS ORDERED: ePHEDrine/NS 25 MG/5 ML SYRINGE IV ONE (12:00)
[2017-08-05] MEDS ORDERED: ONDANSETRON HCL 4 MG/2 ML VIAL IV ONE (12:00)
[2017-08-05] MEDS ORDERED: PHENYLEPH/NS 1000 MCG/10 ML SYR IV ONE (12:00)
--- NOTE | 2017-08-05 13:31 | HHI.PR ---
Subjective Remarks Follow-up incarcerated hernia, mechanical aortic valve replacement, hypertension. Patient had surgery today to repair the hernia and bowel obstruction. He is still somewhat sedated. States that his pain is well controlled. Objective Vitals Vital Signs Date Time Temp Pulse Resp B/P (MAP) Pulse Ox O2 Delivery O2 Flow Rate FiO2 08/05/17 12:00 97.5 103 18 146/79 (101) 98 08/05/17 11:50 Nasal Cannula 2.00 08/05/17 10:00 99 16 142/65 (90) 100 Nasal Cannula 2 08/05/17 09:45 97.9 95 16 132/68 (89) 100 Nasal Cannula 2 08/05/17 09:30 96 18 127/63 (84) 100 Nasal Cannula 2 08/05/17 09:15 99 18 132/70 (90) 100 Nasal Cannula 2 08/05/17 09:00 103 16 124/58 (80) 100 Nasal Cannula 2 08/05/17 08:45 97 14 125/56 (79) 100 Nasal Cannula 2 08/05/17 08:30 104 15 123/62 (82) 100 Nasal Cannula 2 08/05/17 08:15 98.1 111 14 134/64 (87) 100 Nasal Cannula 3 08/05/17 07:00 120 08/05/17 05:00 Room Air 08/05/17 04:37 120 08/05/17 04:00 97.4 105 20 110/58 (75) 93 08/05/17 03:35 97.4 108 22 105/55 (72) 93 08/05/17 02:54 08/05/17 02:35 102 16 181/106 (131) 99 Nasal Cannula 4.00 08/05/17 02:20 100 16 190/97 (128) 99 Nasal Cannula 4.00 08/05/17 02:05 92 16 170/80 (110) 99 Nasal Cannula 4.00 08/05/17 01:50 98.6 94 16 185/87 (119) 98 Nasal Cannula 4.00 08/05/17 01:36 98.6 89 18 183/87 (119) 98 Nasal Cannula 4.00 08/05/17 00:50 88 16 175/70 99 08/05/17 00:39 16 08/05/17 00:35 86 16 162/64 99 08/05/17 00:20 98.6 114 16 179/89 99 08/04/17 23:59 89 16 177/79 100 08/04/17 23:35 94 16 188/72 94 08/04/17 23:22 92 16 177/77 93 08/04/17 22:58 98.4 89 16 165/76 93 08/04/17 21:28 91 16 156/63 (94) 94 Room Air 08/04/17 18:59 104 16 187/72 (110) 94 Room Air 08/04/17 18:56 16 08/04/17 18:20 121 18 172/95 (120) 97 Room Air 08/04/17 17:45 118 149/89 (109) 97 Room Air 08/04/17 16:52 97.9 103 18 224/98 (140) 98 Room Air I/O 08/04/17 08/04/17 08/04/17 08/05/17 08/05/17 08/05/17 07:00 15:00 23:00 07:00 15:00 23:00 Intake Total 51 ml 526 ml 1200 ml Output Total 500 ml 400 ml 1155 ml Balance -449 ml 126 ml 45 ml Intake Oral 0 ml IV Total 51 ml 1200 ml FFP 526 ml Output Urine Total 500 ml 400 ml 1150 ml Estimated Blood Loss 5 ml # Bowel Movements 0 Result Diagram: 08/05/17 0536 08/04/17 1720 Imaging Last Impressions Abdomen/Pelvis CT 08/04/17 0000 Signed Impressions: Service Date/Time: July 18:21 - CONCLUSION: 1. Right inguinal hernia containing loop of small bowel with associated at least partial small bowel obstruction. 2. Bilateral pleural effusions, left greater than right with basilar atelectasis and scarring and right pleural calcifications. Manjinder Villatoro MD Objective Remarks General: Elderly male in no acute distress. Heart: Tachycardic. No murmur. Lungs: Clear to auscultation bilaterally. No wheezes, rales, or rhonchi. Breathing is nonlabored. Abdomen: Soft, nontender, nondistended. Extremities: No lower extremity edema. Psych: Sleeping/sedated. Does awaken and answers questions. Somewhat confused. Urinary Catheter: No Vascular Central Line Catheter: No A/P Assessment and Plan 1. Abdominal pain, incarcerated hernia: Status post surgical repair. Appreciate postoperative management by general surgery. Continue pain control. 2. Coumadin coagulopathy: Resolved. INR is now subtherapeutic. Cardiology was consulted to assist with managing anticoagulation postoperatively. 3. Mechanical aortic valve replacement: Patient will need Coumadin restarted postoperatively. Cardiology consult is pending. 4. Hypertension: Restart lisinopril. 5. DVT prophylaxis: SCDs. Chemical prophylaxis on hold secondary to surgery. Sridhar Mahmood MD Aug 05, 2017 13:31
--- NOTE | 2017-08-05 14:58 | PD.CONS ---
HPI Service Cardiology Consult Requested By Dr Brizuela Reason for Consult mechanical heart valve and incarcerated inguinal hernia Primary Care Physician Thad Hackett MD History of Present Illness The patient is an 82 year old male known to our practice with a cardiac history of mechanical aortic valve, atrial fibrillation/flutter, carotid stenosis s/p right endarterectomy 06/2017 at [facility], HLD and HTN. The patient presented to the hospital with abdominal pain and was noted to have incarcerated hernia. Coumadin was reversed with FFP and he was taken to the OR. I evaluated the patient post operatively. His primary complaint is some mild abdominal pain. He denies CP or SOB. Telemetry reveals atrial fibrillation with rates 90-130 bpm. BP stable. (Silvia Arce) Review of Systems Consitutional: DENIES: Fatigue, Fever, Chills, Weight gain, Weight loss Eyes: DENIES: Amaurosis Fugax, Change in vision HEENT: DENIES: Lightheadedness, Change in hearing Respiratory: DENIES: See HPI, Cough, Snoring, Shortness of breath, Wheezing, Sputum production Cardiovascular: DENIES: See HPI, Chest pain, Palpitations, Syncope, Tachycardia Gastrointestinal: DENIES: Nausea, Vomiting, Change in bowel habits, Reflux, Bloody stools, Melena Genitourinary: DENIES: Urinary incontinence, Difficulty voiding Integumentary: DENIES: Rash Neurologic: DENIES: Tingling or numbness, Memory problems, Poor Balance, Stroke symptoms Musculoskeletal: DENIES: Joint pain, Muscle pain, Limited range of motion, Back pain Psychiatric: DENIES: Anxiety, Depression, Sleep disturbances Hematologic: DENIES: Bruising tendencies, Bleeding tendencies Endocrine: DENIES: Weight gain, Weight loss, Thyroid disease (Silvia Arce ) Past Family Social History Allergies: Coded Allergies: aspirin (Verified Allergy, Severe, Bleeding, 08/04/17) Past Medical History Mechanical AVR Atrial fibrillation/atrial flutter Carotid stenosis HTN HLD Past Surgical History Right endarterectomy 06/2017 Dr Cassie STARK 1999 Reported Medications Reported Meds & Active Scripts Active Reported Warfarin 5 Mg Tab 5 Mg PO WEEKLY Warfarin 2.5 Mg Tab 2.5 Mg PO DAILY Lisinopril 10 Mg Tab 10 Mg PO DAILY Multaq (Dronedarone) 400 Mg Tab 400 Mg PO BID Active Ordered Medications Current Medications Medications (Trade) Dose Ordered Sig/Jani Route Start Time Stop Time Status Last Admin (Zofran Inj) 4 mg Q6H PRN IV PUSH 08/04/17 19:30 08/05/17 01:01 (Duoneb Neb) 1 ampule Q2HR NEB PRN INH 08/04/17 19:30 Miscellaneous Information 1 Q361D XX 08/04/17 19:30 (Chlorhexidine 2% Cloth) 3 pack Taper DAILY@04 TOP 08/05/17 04:00 08/01/18 03:59 (Chlorhexidine 2% Cloth) 3 pack UNSCH PRN TOP 08/04/17 19:30 (Dilaudid Pf Inj) 0.5 mg Q4H PRN IV PUSH 08/04/17 23:15 08/05/17 05:00 Lactated Ringer's 1,000 ml @ 30 mls/hr Q24H PRN IV 08/05/17 05:00 08/08/17 04:59 (Betadine 5% Antisepsis Kit) 1 applic WOOD BUCKER PRN EACH NARE 08/05/17 05:00 08/08/17 04:59 (Chlorhexidine 2% Cloth) 3 pack WOOD BUCKER PRN TOPICAL 08/05/17 05:00 08/08/17 04:59 Miscellaneous Information ALL NURSING DEPARTME... UNSCH PRN .XX 08/05/17 08:17 08/06/17 08:16 (Multaq) 400 mg BID PO 08/05/17 21:00 (Prinivil) 10 mg DAILY PO 08/06/17 09:00 (Coumadin) 2.5 mg DAILY@16 PO 08/06/17 16:00 UNV Family History non contributory Social History last year Lives alone No smoking or ETOH (Silvia Arce) Physical Exam Vital Signs Vital Signs Date Time Temp Pulse Resp B/P (MAP) Pulse Ox O2 Delivery O2 Flow Rate FiO2 08/05/17 13:41 97 08/05/17 12:00 97.5 103 18 146/79 (101) 98 08/05/17 11:50 Nasal Cannula 2.00 08/05/17 10:00 99 16 142/65 (90) 100 Nasal Cannula 2 08/05/17 09:45 97.9 95 16 132/68 (89) 100 Nasal Cannula 2 08/05/17 09:30 96 18 127/63 (84) 100 Nasal Cannula 2 08/05/17 09:15 99 18 132/70 (90) 100 Nasal Cannula 2 08/05/17 09:00 103 16 124/58 (80) 100 Nasal Cannula 2 08/05/17 08:45 97 14 125/56 (79) 100 Nasal Cannula 2 08/05/17 08:30 104 15 123/62 (82) 100 Nasal Cannula 2 08/05/17 08:15 98.1 111 14 134/64 (87) 100 Nasal Cannula 3 08/05/17 07:00 120 08/05/17 05:00 Room Air 08/05/17 04:37 120 08/05/17 04:00 97.4 105 20 110/58 (75) 93 08/05/17 03:35 97.4 108 22 105/55 (72) 93 08/05/17 02:54 08/05/17 02:35 102 16 181/106 (131) 99 Nasal Cannula 4.00 08/05/17 02:20 100 16 190/97 (128) 99 Nasal Cannula 4.00 08/05/17 02:05 92 16 170/80 (110) 99 Nasal Cannula 4.00 08/05/17 01:50 98.6 94 16 185/87 (119) 98 Nasal Cannula 4.00 08/05/17 01:36 98.6 89 18 183/87 (119) 98 Nasal Cannula 4.00 08/05/17 00:50 88 16 175/70 99 08/05/17 00:39 16 08/05/17 00:35 86 16 162/64 99 08/05/17 00:20 98.6 114 16 179/89 99 08/04/17 23:59 89 16 177/79 100 08/04/17 23:35 94 16 188/72 94 08/04/17 23:22 92 16 177/77 93 08/04/17 22:58 98.4 89 16 165/76 93 08/04/17 21:28 91 16 156/63 (94) 94 Room Air 08/04/17 18:59 104 16 187/72 (110) 94 Room Air 08/04/17 18:56 16 08/04/17 18:20 121 18 172/95 (120) 97 Room Air 08/04/17 17:45 118 149/89 (109) 97 Room Air 08/04/17 16:52 97.9 103 18 224/98 (140) 98 Room Air Physical Exam GENERAL: Elderly male, NAD SKIN: Warm and dry. HEAD: Atraumatic. Normocephalic. EYES: Pupils equal and round. No scleral icterus. No injection or drainage. ENT: No nasal bleeding or discharge. Mucous membranes pink and moist. NECK: Trachea midline. CARDIOVASCULAR: Irre irreg, tachycardia, mechanical click RESPIRATORY: No accessory muscle use. Clear to auscultation. Breath sounds equal bilaterally. nasal cannula GASTROINTESTINAL: Abdominal binder MUSCULOSKELETAL: Extremities without clubbing, cyanosis, or edema. NEUROLOGICAL: Awake and alert. No obvious cranial nerve deficits. Normal speech. PSYCHIATRIC: Appropriate mood and affect Laboratory Laboratory Tests Test 08/04/17 17:20 08/04/17 18:15 08/05/17 02:43 08/05/17 05:36 White Blood Count 7.5 10.7 Red Blood Count 3.20 3.12 Hemoglobin 11.0 11.2 Hematocrit 33.4 32.2 Mean Corpuscular Volume 104.4 103.2 Mean Corpuscular Hemoglobin 34.3 35.9 Mean Corpuscular Hemoglobin Concent 32.8 34.8 Red Cell Distribution Width 14.1 14.2 Platelet Count 271 246 Mean Platelet Volume 7.2 7.8 Neutrophils (%) (Auto) 77.3 Lymphocytes (%) (Auto) 11.5 Monocytes (%) (Auto) 8.5 Eosinophils (%) (Auto) 0.7 Basophils (%) (Auto) 2.0 Neutrophils # (Auto) 5.7 Lymphocytes # (Auto) 0.9 Monocytes # (Auto) 0.6 Eosinophils # (Auto) 0.1 Basophils # (Auto) 0.2 CBC Comment DIFF FINAL Differential Comment Prothrombin Time 43.1 13.4 Prothromb Time International Ratio 4.3 1.3 Activated Partial Thromboplast Time 46.7 30.1 Blood Urea Nitrogen 13 Creatinine 0.91 Random Glucose 105 Calcium Level 8.7 Sodium Level 137 Potassium Level 3.9 Chloride Level 102 Carbon Dioxide Level 26.2 Anion Gap 9 Estimat Glomerular Filtration Rate 80 Urine Collection Type CLEAN CATCH Urine Color YELLOW Urine Turbidity CLEAR Urine pH 6.0 Urine Specific [place] 1.020 Urine Protein TRACE Urine Glucose (UA) NEG Urine Ketones 15 Urine Occult Blood SMALL Urine Nitrite NEG Urine Bilirubin NEG Urine Leukocyte Esterase NEG Urine RBC 15-19 Urine Squamous Epithelial Cells 0-5 Microscopic Urinalysis Comment CULT NOT INDICATED Urine Collection Time 18:15 (Silvia Arce) Result Diagram: 08/05/17 0536 08/04/17 1720 Imaging Last 72 hours Impressions Abdomen/Pelvis CT 08/04/17 0000 Signed Impressions: Service Date/Time: July 18:21 - CONCLUSION: 1. Right inguinal hernia containing loop of small bowel with associated at least partial small bowel obstruction. 2. Bilateral pleural effusions, left greater than right with basilar atelectasis and scarring and right pleural calcifications. Manjinder Villatoro MD (Silvia Arce) Assessment and Plan Assessment and Plan Incarcerated hernia and small bowel obstruction POD #0 for open laparotomy Mechanical aortic valve - on coumadin prior to admission INR goal 2.5-3.5 Atrial fibrillation/atrial flutter Carotid stenosis HTN HLD PLAN: Stop Multaq, start Cardizem CD 180 mg Hold parameters of lisinopril Start heparin and coumadin bridge 2.5 mg daily tomorrow if okay with surgery. The patient will need CLOSE followup of PT/INR after discharge. Since discharge from [facility], his INR increased to > 8 The patient was seen and evaluated by Dr Pugh who completed face to face encounter, physical exam and participated in evaluation and management. (Silvia Arce) Assessment and Plan The exam, history, and the medical decision-making described in the above note were completed with the assistance of the mid-level provider. I reviewed and agree with the findings presented. I attest that I had a [id number] encounter with the patient on the same day, and personally performed and documented my assessment and findings in the medical record. Will need anticoagulation for prosthetic valve (Osbaldo Pugh MD) Silvia Arce Aug 05, 2017 14:58 Osbaldo Pugh MD Aug 05, 2017 15:11
--- NOTE | 2017-08-05 17:12 | MP ---
cc: BETY BLOCK DATE OF SURGERY: 08/05/2017 PREOPERATIVE DIAGNOSIS: Incarcerated hernia with small bowel obstruction. POSTOPERATIVE DIAGNOSIS: Incarcerated femoral hernia with questionable ischemic bowel. OPERATION: Repair of right incarcerated femoral hernia with plug. Exploratory laparotomy to evaluate ischemic bowel which was five. ANESTHESIA: General. SURGEON Dr. Block HISTORY: The patient is a pleasant 82-year-old gentleman who came to the emergency room complaining of right groin pain. He had just recently had a carotid endarterectomy for a previous stroke. He is also on Coumadin because of that and the aortic valve. Unfortunately his INR was greatly elevated and he was in atrial fibrillation with rapid ventricular response, this needed to be stabilized prior to surgical intervention. Dr. Alfredo stabilized the patient and reversed his coagulopathy, plans were made for above. PROCEDURE: The patient was taken to the operating room, placed in the supine position after anesthesia, his groin and abdomen is prepped. Time-out was done. We make an oblique incision overlying the inguinal canal where he had a previous inguinal hernia repair, dissect down into the fascia identifying a previous plug and patch that had been placed just inferior to this, he actually has a femoral hernia. We dissected free from the surrounding tissue. It is just medial to the femoral vein which is quite prominent. We are able to enter the hernia sac identifying a loop of small bowel that is black. This is pinpoint hole, I elongate the defect is slightly the bowel and retracts back into the at the abdominal cavity. We then dissect free the hernia sac which is somewhat necrotic imbricated upon itself and ligated with a 2-0 Vicryl. We then placed a small plug into the defect, as there is nothing to really to sow and repair this defect because of a prominent vein and the scar tissue from his previous hernia repair. We are able imbricate some of the external oblique aponeurosis down to the pubic tubercle to secure the plug in place. We then closed the deep layer with a 2-0 Vicryl and skin is closed with 4-0 Vicryl. We then make an incision from the umbilicus down the abdomen and so we can expect inspect his ischemic appearing bowel, we entered the abdomen and we are able to find a loop of bowel but at the time we had entered the abdomen, it had pinked up. The small bowel was visualized. It is in quite viable. He has some adhesions up in the midline in his upper abdomen which not dealt with. I do not see any abnormalities, appendix looks normal. The plug from his previous plug and patch and can be palpated. The femoral defect cannot be entered with the repair that I have done. We then closed the fascia with a #1 PDS looped and the skin is reapproximate skin staple device. The patient tolerated the procedure well. He had no immediate postoperative complications. I discussed the intraoperative findings with the [id number] Zunilda at [phone]. MD SIERRA Cain/princess /8:14 AM /3:58 PM
[2017-08-05 17:28] LABS: BICARBONATE 29.9 MEQ/L (21.0-32.0)
[2017-08-05] MEDS ORDERED: DRONEDARONE 400 MG TAB PO SCH (21:00)
[2017-08-06] VITALS (13 sets, daily range): BP systolic 116–172; BP diastolic 57–83; PULSE 72–119; RESP 18–22; TEMP 97.3–98.4; O2SAT 91–99
[2017-08-06] MEDS: CHLORHEXIDINE GLUCONATE 2 % 1 PACK (2 CLOTHS) TOP SCH (04:00)
[2017-08-06] MEDS: HYDROmorphone HCL PF 2 MG/ML VIAL IV PUSH PRN (06:17)
[2017-08-06 08:06] LABS: HEMATOCRIT 33.8 % (39.0-51.0); MEAN CELL VOLUME 103.8 FL (80.0-100.0); MEAN CORPUSCULAR HEMOGLOBIN 35.6 PG (27.0-34.0); MEAN CORPUSCULAR HGB CONC 34.3 % (32.0-36.0); PLATELET COUNT 235 TH/MM3 (150-450); RED BLOOD COUNT 3.25 MIL/MM3 (4.50-5.90); RED CELL DISTRIBUTION WIDTH 14.6 % (11.6-17.2); REVIEW FLAG FINAL; WHITE BLOOD COUNT 11.7 TH/MM3 (4.0-11.0)
[2017-08-06 08:07] LABS: INTERNATIONAL NORMALIZED RATIO 1.1 RATIO; PROTHROMBIN TIME - PATIENT 11.2 SEC (9.8-11.6)
[2017-08-06 08:23] LABS: BICARBONATE 30.9 MEQ/L (21.0-32.0); POTASSIUM 3.7 MEQ/L (3.5-5.1)
[2017-08-06] MEDS: DILTIAZEM-CD 180 MG CAP ER PO SCH (08:50)
[2017-08-06] MEDS ORDERED: LISINOPRIL 10 MG TAB PO SCH (09:00)
--- NOTE | 2017-08-06 12:09 | EKG ---
Date Performed: 08/04/2017 Time Performed: 19:16:09 PTAGE: 82 years EKG: ATRIAL FIBRILLATION WITH RAPID VENTRICULAR RESPONSE WITH ABERRANT CONDUCTION OR VENTRICULAR PREMATURE COMPLEXES ANTEROSEPTAL MYOCARDIAL INFARCTION ABNORMAL ECG PREVIOUS TRACING : 07/23/2009 08.30 DOCTOR: Dede Fry Interpretating Date/Time 08/06/2017 12:07:27
--- NOTE | 2017-08-06 13:31 | HHI.PR ---
Subjective Subjective Notes pain ok, tolerating PO Objective Vitals/I&O Vital Signs Date Time Temp Pulse Resp B/P (MAP) Pulse Ox O2 Delivery O2 Flow Rate FiO2 08/06/17 12:00 97.8 96 18 149/83 (105) 92 08/06/17 08:54 Nasal Cannula 3.00 Labs Laboratory Tests Test 08/05/17 16:11 08/06/17 07:12 Blood Urea Nitrogen 13 16 Creatinine 0.94 0.89 Random Glucose 174 120 Calcium Level 8.9 9.0 Sodium Level 136 134 Potassium Level 4.0 3.7 Chloride Level 96 97 Carbon Dioxide Level 29.9 30.9 Anion Gap 10 6 Estimat Glomerular Filtration Rate 77 82 White Blood Count 11.7 Red Blood Count 3.25 Hemoglobin 11.6 Hematocrit 33.8 Mean Corpuscular Volume 103.8 Mean Corpuscular Hemoglobin 35.6 Mean Corpuscular Hemoglobin Concent 34.3 Red Cell Distribution Width 14.6 Platelet Count 235 Mean Platelet Volume 7.8 Prothrombin Time 11.2 Prothromb Time International Ratio 1.1 Cardiovascular: Regular Lungs: Clear Abdomen: Non-distended, Post-op tenderness Narrative Exam incisions c/d/i A/P Assessment and Plan 82yo s/p exlap and femoral hernia repair, stable. tolerating PO pain ok no BM yet mildly confused likely home Tuesday at the earliest Angelo Leong MD Aug 06, 2017 13:31
[2017-08-06 15:36] LABS: HEMATOCRIT 34.4 % (39.0-51.0); MEAN CELL VOLUME 103.4 FL (80.0-100.0); MEAN CORPUSCULAR HEMOGLOBIN 35.4 PG (27.0-34.0); MEAN CORPUSCULAR HGB CONC 34.2 % (32.0-36.0); PLATELET COUNT 258 TH/MM3 (150-450); RED BLOOD COUNT 3.32 MIL/MM3 (4.50-5.90); RED CELL DISTRIBUTION WIDTH 14.9 % (11.6-17.2); REVIEW FLAG FINAL; WHITE BLOOD COUNT 10.9 TH/MM3 (4.0-11.0)
--- NOTE | 2017-08-06 15:41 | HHI.PR ---
Subjective Remarks Follow-up incarcerated hernia and aVR. Patient doing okay agrees with anticoagulation Objective Vitals Vital Signs Date Time Temp Pulse Resp B/P (MAP) Pulse Ox O2 Delivery O2 Flow Rate FiO2 08/06/17 12:00 97.8 96 18 149/83 (105) 92 08/06/17 09:00 Nasal Cannula 3.00 08/06/17 08:54 95 Nasal Cannula 3.00 08/06/17 08:00 97.3 119 18 158/82 (107) 91 08/06/17 07:00 103 08/06/17 07:00 Room Air 08/06/17 04:01 109 08/06/17 04:00 98.1 112 20 116/66 (83) 93 08/06/17 00:00 98.0 106 22 118/57 (77) 94 08/05/17 23:55 111 08/05/17 22:58 96 Nasal Cannula 2.00 08/05/17 20:09 92 08/05/17 20:00 97.9 94 20 128/69 (88) 95 08/05/17 19:45 Room Air 08/05/17 17:08 114 08/05/17 17:00 98 Nasal Cannula 2.00 08/05/17 16:00 99.2 110 22 162/72 (102) 98 I/O 08/05/17 08/05/17 08/05/17 08/06/17 08/06/17 08/06/17 07:00 15:00 23:00 07:00 15:00 23:00 Intake Total 526 ml 1200 ml 480 ml 620 ml Output Total 400 ml 1155 ml 325 ml 100 ml Balance 126 ml 45 ml 480 ml 295 ml -100 ml Intake Oral 0 ml 480 ml 620 ml IV Total 1200 ml FFP 526 ml Output Urine Total 400 ml 1150 ml 325 ml 100 ml Estimated Blood Loss 5 ml # Bowel Movements 0 0 0 Result Diagram: 08/06/17 1503 08/06/17 0712 Imaging Last Impressions Abdomen/Pelvis CT 08/04/17 0000 Signed Impressions: Service Date/Time: July 18:21 - CONCLUSION: 1. Right inguinal hernia containing loop of small bowel with associated at least partial small bowel obstruction. 2. Bilateral pleural effusions, left greater than right with basilar atelectasis and scarring and right pleural calcifications. Manjinder Villatoro MD Objective Remarks General: Elderly male in no acute distress. Skin is warm no lesions Heart: Irregularly irregular with metallic click Lungs: Clear to auscultation bilaterally. No wheezes, rales, or rhonchi. Breathing is nonlabored. Abdomen: Soft, nondistended with abdominal binder. Extremities: No lower extremity edema. Psych: Awake and alert Procedures Repair of right incarcerated femoral hernia with plug. A/P Problem List: (1) Incarcerated hernia ICD Code: K46.0 - Unspecified abdominal hernia with obstruction, without gangrene Status: Acute Assessment and Plan 1. Abdominal pain, incarcerated hernia: Status post surgical repair. Appreciate postoperative management by general surgery. Continue pain control with IV Dilaudid. Add by mouth pain medicine tomorrow if he continues to tolerate diet 2. Coumadin coagulopathy: Resolved. INR is now subtherapeutic. Cleared by general surgery will start Coumadin bridge with heparin drip 3. Mechanical aortic valve replacement: Patient will need Coumadin restarted postoperatively. 4. Hypertension: Restart lisinopril. 5. Hyperglycemia. Obtain A1c 6. DVT prophylaxis: SCDs. Heparin drip and Coumadin Discharge Planning Not ready for discharge requiring heparin drip Thad Alatorre MD Aug 06, 2017 15:40
[2017-08-06 16:01] LABS: APTT (PATIENT) 25.7 SEC (24.3-30.1); INTERNATIONAL NORMALIZED RATIO 1.1 RATIO; PROTHROMBIN TIME - PATIENT 11.3 SEC (9.8-11.6)
[2017-08-06] MEDS: WARFARIN SOD 2.5 MG TAB PO SCH (16:10)
[2017-08-06] MEDS: HEPARIN-D5W 25,000 U/250 ML 250 ML IV PRN (16:46)
[2017-08-06] MEDS: LISINOPRIL 10 MG TAB PO SCH (20:25)
[2017-08-06 23:25] LABS: APTT (PATIENT) 31.7 SEC (24.3-30.1)
[2017-08-07] VITALS (10 sets, daily range): BP systolic 119–175; BP diastolic 59–75; PULSE 63–119; RESP 18; TEMP 97.2–98.6; O2SAT 94–98
[2017-08-07] MEDS: HYDROmorphone HCL PF 2 MG/ML VIAL IV PUSH PRN ×3 (00:44→22:16)
[2017-08-07] MEDS: CHLORHEXIDINE GLUCONATE 2 % 1 PACK (2 CLOTHS) TOP SCH (00:49)
[2017-08-07 07:27] LABS: BICARBONATE 26.7 MEQ/L (21.0-32.0)
[2017-08-07] MEDS: DILTIAZEM-CD 180 MG CAP ER PO SCH (09:07)
[2017-08-07] MEDS: LISINOPRIL 10 MG TAB PO SCH (09:07)
[2017-08-07 10:20] LABS: HEMATOCRIT 34.1 % (39.0-51.0); MEAN CELL VOLUME 103.8 FL (80.0-100.0); MEAN CORPUSCULAR HEMOGLOBIN 35.6 PG (27.0-34.0); MEAN CORPUSCULAR HGB CONC 34.3 % (32.0-36.0); PLATELET COUNT 258 TH/MM3 (150-450); RED BLOOD COUNT 3.29 MIL/MM3 (4.50-5.90); RED CELL DISTRIBUTION WIDTH 14.4 % (11.6-17.2); REVIEW FLAG FINAL
[2017-08-07 10:31] LABS: INTERNATIONAL NORMALIZED RATIO 1.2 RATIO; PROTHROMBIN TIME - PATIENT 11.8 SEC (9.8-11.6)
[2017-08-07 10:39] LABS: APTT (PATIENT) 33.8 SEC (24.3-30.1)
[2017-08-07 10:57] LABS: HEMOGLOBIN A1a 1.1 %; HEMOGLOBIN A1b 0.6 %; HEMOGLOBIN Ao 85.8 %; HEMOGLOBIN F 1.3 %; HEMOGLOBIN P3 3.7 %
--- NOTE | 2017-08-07 11:25 | HHI.PR ---
Subjective Subjective Notes no complaints, tolerating po, no BM or flatus yet Objective Vitals/I&O Vital Signs Date Time Temp Pulse Resp B/P (MAP) Pulse Ox O2 Delivery O2 Flow Rate FiO2 08/07/17 09:12 Nasal Cannula 3.00 08/07/17 08:00 98.2 111 18 169/75 (106) 96 Labs Laboratory Tests Test 08/06/17 12:08 08/06/17 15:03 08/06/17 22:34 08/07/17 05:30 Prothrombin Time 11.3 Prothromb Time International Ratio 1.1 Activated Partial Thromboplast Time 25.7 31.7 White Blood Count 10.9 Red Blood Count 3.32 Hemoglobin 11.8 Hematocrit 34.4 Mean Corpuscular Volume 103.4 Mean Corpuscular Hemoglobin 35.4 Mean Corpuscular Hemoglobin Concent 34.2 Red Cell Distribution Width 14.9 Platelet Count 258 Mean Platelet Volume 8.1 Blood Urea Nitrogen 14 Creatinine 0.71 Random Glucose 106 Calcium Level 8.4 Sodium Level 133 Potassium Level 4.0 Chloride Level 99 Carbon Dioxide Level 26.7 Anion Gap 7 Estimat Glomerular Filtration Rate 106 Test 08/07/17 09:20 White Blood Count 10.0 Red Blood Count 3.29 Hemoglobin 11.7 Hematocrit 34.1 Mean Corpuscular Volume 103.8 Mean Corpuscular Hemoglobin 35.6 Mean Corpuscular Hemoglobin Concent 34.3 Red Cell Distribution Width 14.4 Platelet Count 258 Mean Platelet Volume 8.3 Prothrombin Time 11.8 Prothromb Time International Ratio 1.2 Activated Partial Thromboplast Time 33.8 Abdomen: Non-distended, Non-tender, Post-op tenderness, BS normal Wound Wound : Wound Location: Abdomen Appearance: Clean & Dry Dressing: Dry A/P Assessment and Plan s/p repair incarcerated RIH, exp lap doing well awaiting bowel function Sushil Miner MD Aug 07, 2017 11:25
--- NOTE | 2017-08-07 14:11 | HHI.PR ---
Subjective Remarks Follow up fib and anticoagulation. He has no complaints. He wants to get out of bed. Still on full liquid diet has not passed gas or stool. Discussed with RN Objective Vitals Vital Signs Date Time Temp Pulse Resp B/P (MAP) Pulse Ox O2 Delivery O2 Flow Rate FiO2 08/07/17 09:12 Nasal Cannula 3.00 08/07/17 08:00 119 08/07/17 08:00 98.2 111 18 169/75 (106) 96 08/07/17 04:00 98.6 85 18 119/59 (79) 97 08/07/17 04:00 Nasal Cannula 3.00 08/07/17 03:47 89 08/07/17 00:00 98.2 63 18 145/70 (95) 98 08/07/17 00:00 Nasal Cannula 3.00 08/06/17 23:45 92 08/06/17 20:04 98 Nasal Cannula 2.00 08/06/17 20:00 98.1 72 20 154/75 (101) 98 08/06/17 20:00 Nasal Cannula 3.00 08/06/17 19:47 82 08/06/17 16:00 98.4 94 18 172/73 (106) 99 08/06/17 15:00 88 I/O 08/06/17 08/06/17 08/06/17 08/07/17 08/07/17 08/07/17 07:00 15:00 23:00 07:00 15:00 23:00 Intake Total 620 ml 600 ml 351 ml Output Total 325 ml 100 ml 150 ml 600 ml Balance 295 ml -100 ml 450 ml -249 ml Intake Oral 620 ml 600 ml 240 ml IV Total 111 ml Output Urine Total 325 ml 100 ml 150 ml 600 ml # Voids 3 # Bowel Movements 0 0 0 Result Diagram: 08/07/17 0920 08/07/17 0530 Objective Remarks General: Elderly male in no acute distress. Skin is warm no lesions Heart: Irregularly irregular with metallic click Lungs: Clear to auscultation bilaterally. No wheezes, rales, or rhonchi. Breathing is nonlabored. Abdomen: Soft, nondistended with abdominal binder. Extremities: No lower extremity edema. Psych: Awake and alert No significant change in PE from previous Procedures Repair of right incarcerated femoral hernia with plug. A/P Problem List: (1) Incarcerated hernia ICD Code: K46.0 - Unspecified abdominal hernia with obstruction, without gangrene Status: Acute Assessment and Plan 1. Abdominal pain, incarcerated hernia: Status post surgical repair. Appreciate postoperative management by general surgery. Continue pain control with IV Dilaudid. Add by mouth Dilaudid for pain scale 1-6 2. Coumadin coagulopathy: Resolved. INR is now subtherapeutic. Continue Coumadin bridge with heparin drip 3. Mechanical aortic valve replacement: Patient on anticoagulation 4. Hypertension: Continue lisinopril. 5. Hyperglycemia. A1c 5.1 6. DVT prophylaxis: SCDs. Heparin drip and Coumadin Discharge Planning Not ready for discharge requiring heparin drip Thad Alatorre MD Aug 07, 2017 14:11
[2017-08-07] MEDS ORDERED: NALOXONE HCL 0.4 MG/ML AMP IV PUSH PRN (14:15)
[2017-08-07] MEDS: WARFARIN SOD 2.5 MG TAB PO SCH (16:35)
[2017-08-07] MEDS: HEPARIN-D5W 25,000 U/250 ML 250 ML IV PRN (22:15)
[2017-08-07 22:39] LABS: APTT (PATIENT) 32.2 SEC (24.3-30.1)
[2017-08-08] VITALS (8 sets, daily range): BP systolic 131–173; BP diastolic 63–89; PULSE 77–106; RESP 17–22; TEMP 97.5–98.3; O2SAT 94–96
[2017-08-08] MEDS: CHLORHEXIDINE GLUCONATE 2 % 1 PACK (2 CLOTHS) TOP SCH (03:57)
[2017-08-08 07:13] LABS: HEMATOCRIT 29.7 % (39.0-51.0); MEAN CELL VOLUME 102.2 FL (80.0-100.0); MEAN CORPUSCULAR HEMOGLOBIN 36.2 PG (27.0-34.0); MEAN CORPUSCULAR HGB CONC 35.4 % (32.0-36.0); PLATELET COUNT 216 TH/MM3 (150-450); RED CELL DISTRIBUTION WIDTH 14.4 % (11.6-17.2); REVIEW FLAG FINAL; WHITE BLOOD COUNT 8.9 TH/MM3 (4.0-11.0)
[2017-08-08 07:15] LABS: APTT (PATIENT) 47.6 SEC (24.3-30.1)
[2017-08-08 07:37] LABS: BICARBONATE 29.8 MEQ/L (21.0-32.0); POTASSIUM 3.9 MEQ/L (3.5-5.1)
[2017-08-08] MEDS ORDERED: CARD180C5 PO (08:52)
[2017-08-08] MEDS ORDERED: DILA2TAB4 PO (08:52)
--- NOTE | 2017-08-08 08:52 | HHI.DCPOC ---
Discharge Care Plan Diagnosis: (1) Incarcerated hernia Your Health Problems Are: Difficulty with ADL Exercise Tolerance Goals to Promote Your Health * To prevent worsening of your condition and complications * To maintain your health at the optimal level Directions to Meet Your Goals Take your medications as prescribed Follow your dietary instruction Follow activity as directed Keep your appointments as scheduled Take your immunizations and boosters as scheduled If your symptoms worsen call your PCP, if no PCP go to Urgent Care Center or Emergency Room Smoking is Dangerous to Your Health. Avoid second hand smoke Call the 24-hour hour crisis hotline for domestic abuse at Thad Alatorre MD Aug 08, 2017 08:52
[2017-08-08] MEDS: LISINOPRIL 10 MG TAB PO SCH (09:36)
[2017-08-08] MEDS: HYDROmorphone HCL PF 2 MG/ML VIAL IV PUSH PRN ×2 (09:38→15:00)
[2017-08-08 12:49] LABS: INTERNATIONAL NORMALIZED RATIO 1.4 RATIO; PROTHROMBIN TIME - PATIENT 13.9 SEC (9.8-11.6)
[2017-08-08 12:59] LABS: APTT (PATIENT) 46.1 SEC (24.3-30.1)
[2017-08-08] MEDS ORDERED: WARFARIN SOD 5 MG TAB PO ONE (14:15)
--- NOTE | 2017-08-08 14:39 | PD.CARD.PN ---
Subjective Subjective Remarks confused. tachycardic and hypertensive. (Silvia rAce) Objective Medications Current Medications Medications (Trade) Dose Ordered Sig/Jani Route Start Time Stop Time Status Last Admin (Zofran Inj) 4 mg Q6H PRN IV PUSH 08/04/17 19:30 08/05/17 01:01 (Duoneb Neb) 1 ampule Q2HR NEB PRN INH 08/04/17 19:30 Miscellaneous Information 1 Q361D XX 08/04/17 19:30 (Chlorhexidine 2% Cloth) 3 pack Taper DAILY@04 TOP 08/05/17 04:00 08/01/18 03:59 (Chlorhexidine 2% Cloth) 3 pack UNSCH PRN TOP 08/04/17 19:30 (Dilaudid Pf Inj) 0.5 mg Q4H PRN IV PUSH 08/04/17 23:15 08/08/17 09:38 (Coumadin) 2.5 mg DAILY@16 PO 08/06/17 16:00 08/07/17 16:35 (Prinivil) 10 mg DAILY PO 08/06/17 21:00 08/08/17 09:36 Heparin Sodium/ Dextrose 250 ml @ 7.75 mls/hr TITRATE PRN IV 08/06/17 12:15 08/07/17 22:15 Pharmacy Profile Note 0 ml @ 0 mls/hr UNSCH OTHER 08/06/17 12:15 (Dilaudid) 1 mg Q4H PRN PO 08/07/17 14:15 (Narcan Inj) 0.4 mg UNSCH PRN IV PUSH 08/07/17 14:15 (Cardizem Cd) 360 mg DAILY PO 08/09/17 09:00 Vital Signs / I&O Vital Signs Date Time Temp Pulse Resp B/P (MAP) Pulse Ox O2 Delivery O2 Flow Rate FiO2 08/08/17 12:00 98.3 106 17 141/63 (89) 94 08/08/17 08:00 97.5 80 17 152/68 (96) 94 08/08/17 04:49 79 08/08/17 04:00 97.7 101 18 161/72 (101) 94 08/08/17 03:02 Room Air 08/08/17 03:02 82 08/08/17 00:00 97.7 96 18 131/64 (86) 96 08/07/17 21:30 92 08/07/17 20:00 98.1 100 18 175/74 (107) 96 08/07/17 16:00 98.2 98 18 148/65 (92) 96 I/O 08/07/17 08/07/17 08/07/17 08/08/17 08/08/17 08/08/17 07:00 15:00 23:00 07:00 15:00 23:00 Intake Total 351 ml 840 ml 808 ml Output Total 600 ml 100 ml 600 ml Balance -249 ml 740 ml 208 ml Intake Oral 240 ml 840 ml 480 ml IV Total 111 ml 328 ml Output Urine Total 600 ml 100 ml 600 ml # Bowel Movements 1 Physical Exam GENERAL: Elderly male up in the chair, NAD SKIN: Warm and dry. HEAD: Normocephalic. EYES: No scleral icterus. No injection or drainage. NECK: Supple, trachea midline. CARDIOVASCULAR: Irreg irreg, tachycardia RESPIRATORY: Breath sounds equal bilaterally. No accessory muscle use. GASTROINTESTINAL: Abdomen soft, non-tender, nondistended. MUSCULOSKELETAL: No cyanosis, or edema. BACK: Nontender without obvious deformity. No CVA tenderness. Laboratory Laboratory Tests Test 08/07/17 21:34 08/08/17 05:20 08/08/17 12:00 Activated Partial Thromboplast Time 32.2 SEC 47.6 SEC 46.1 SEC White Blood Count 8.9 TH/MM3 Red Blood Count 2.90 MIL/MM3 Hemoglobin 10.5 GM/DL Hematocrit 29.7 % Mean Corpuscular Volume 102.2 FL Mean Corpuscular Hemoglobin 36.2 PG Mean Corpuscular Hemoglobin Concent 35.4 % Red Cell Distribution Width 14.4 % Platelet Count 216 TH/MM3 Mean Platelet Volume 8.3 FL Blood Urea Nitrogen 16 MG/DL Creatinine 0.72 MG/DL Random Glucose 125 MG/DL Calcium Level 8.6 MG/DL Sodium Level 133 MEQ/L Potassium Level 3.9 MEQ/L Chloride Level 97 MEQ/L Carbon Dioxide Level 29.8 MEQ/L Anion Gap 6 MEQ/L Estimat Glomerular Filtration Rate 105 ML/MIN Prothrombin Time 13.9 SEC Prothromb Time International Ratio 1.4 RATIO (Silvia Arce) Assessment and Plan Assessment and Plan Incarcerated hernia and small bowel obstruction POD #3 for open laparotomy Mechanical aortic valve - on coumadin prior to admission INR goal 2.5-3.5 Atrial fibrillation/atrial flutter Carotid stenosis, recent carotid endarterectomy HTN HLD PLAN: Increase cardizem LA 360 mg Hold parameters of lisinopril Continue heparin/coumadin bridge. Give coumadin 5 mg PO once today and continue coumadin 2.5 mg daily The patient was seen and evaluated by Dr Pugh who completed face to face encounter, physical exam and participated in evaluation and management. (Silvia Arce) Assessment and Plan The exam, history, and the medical decision-making described in the above note were completed with the assistance of the mid-level provider. I reviewed and agree with the findings presented. I attest that I had a [id number] encounter with the patient on the same day, and personally performed and documented my assessment and findings in the medical record. Overall more stable , will increase Coumadin dose. (Osbaldo Pugh MD) Silvia Arce Aug 08, 2017 14:39 Osbaldo Pugh MD Aug 08, 2017 17:23
[2017-08-08] MEDS: WARFARIN SOD 2.5 MG TAB PO SCH (15:03)
--- NOTE | 2017-08-08 15:51 | HHI.PR ---
Subjective Remarks F/u mechanical valve on anticoagulation. Seen with sister in law. Dw RN. Tolerating diet. Small bowel movement yesterday. Out of bed to chair. He feels weak Objective Vitals Vital Signs Date Time Temp Pulse Resp B/P (MAP) Pulse Ox O2 Delivery O2 Flow Rate FiO2 08/08/17 12:00 98.3 106 17 141/63 (89) 94 08/08/17 08:00 97.5 80 17 152/68 (96) 94 08/08/17 04:49 79 08/08/17 04:00 97.7 101 18 161/72 (101) 94 08/08/17 03:02 Room Air 08/08/17 03:02 82 08/08/17 00:00 97.7 96 18 131/64 (86) 96 08/07/17 21:30 92 08/07/17 20:00 98.1 100 18 175/74 (107) 96 08/07/17 16:00 98.2 98 18 148/65 (92) 96 I/O 08/07/17 08/07/17 08/07/17 08/08/17 08/08/17 08/08/17 07:00 15:00 23:00 07:00 15:00 23:00 Intake Total 351 ml 840 ml 808 ml Output Total 600 ml 100 ml 600 ml Balance -249 ml 740 ml 208 ml Intake Oral 240 ml 840 ml 480 ml IV Total 111 ml 328 ml Output Urine Total 600 ml 100 ml 600 ml # Bowel Movements 1 Result Diagram: 08/08/17 0520 08/08/17 0520 Imaging Last Impressions Abdomen/Pelvis CT 08/04/17 0000 Signed Impressions: Service Date/Time: July 18:21 - CONCLUSION: 1. Right inguinal hernia containing loop of small bowel with associated at least partial small bowel obstruction. 2. Bilateral pleural effusions, left greater than right with basilar atelectasis and scarring and right pleural calcifications. Manjinder Villatoro MD Objective Remarks General: Elderly male in no acute distress. Skin is warm no lesions Heart: Irregularly irregular with metallic click Lungs: Clear to auscultation bilaterally. No wheezes, rales, or rhonchi. Breathing is nonlabored. Abdomen: Soft, nondistended with abdominal binder. Extremities: No lower extremity edema. Psych: Awake and alert Procedures Repair of right incarcerated femoral hernia with plug. A/P Problem List: (1) Incarcerated hernia ICD Code: K46.0 - Unspecified abdominal hernia with obstruction, without gangrene Status: Acute Assessment and Plan 1. Abdominal pain, incarcerated hernia: Status post surgical repair. Appreciate postoperative management by general surgery. Continue pain control with IV Dilaudid. Add by mouth Dilaudid for pain scale 1-6. Advanced diet per GS currently on liquid diet 2. Coumadin coagulopathy: Resolved. INR is now subtherapeutic. Continue Coumadin bridge with heparin drip 3. Mechanical aortic valve replacement: Patient on anticoagulation 4. Hypertension: Continue lisinopril. 5. Hyperglycemia. A1c 5.1 6. Deconditioning. Continue physical therapy and increase activity DVT prophylaxis: SCDs. Heparin drip and Coumadin Discharge Planning Not ready for discharge requiring heparin drip Thad Alatorre MD Aug 08, 2017 15:51
--- NOTE | 2017-08-08 17:12 | HHI.PR ---
cc: Bety Fry MD Subjective Subjective Notes DAILY PROGRESS NOTE FOR SURGICAL ATTENDING, DR. BETY FRY Up to chair Eating breakfast Objective Vitals/I&O Vital Signs Date Time Temp Pulse Resp B/P (MAP) Pulse Ox O2 Delivery O2 Flow Rate FiO2 08/08/17 12:00 98.3 106 17 141/63 (89) 94 08/08/17 03:02 Room Air 08/07/17 09:12 3.00 Labs Laboratory Tests Test 08/07/17 21:34 08/08/17 05:20 08/08/17 12:00 Activated Partial Thromboplast Time 32.2 47.6 46.1 White Blood Count 8.9 Red Blood Count 2.90 Hemoglobin 10.5 Hematocrit 29.7 Mean Corpuscular Volume 102.2 Mean Corpuscular Hemoglobin 36.2 Mean Corpuscular Hemoglobin Concent 35.4 Red Cell Distribution Width 14.4 Platelet Count 216 Mean Platelet Volume 8.3 Blood Urea Nitrogen 16 Creatinine 0.72 Random Glucose 125 Calcium Level 8.6 Sodium Level 133 Potassium Level 3.9 Chloride Level 97 Carbon Dioxide Level 29.8 Anion Gap 6 Estimat Glomerular Filtration Rate 105 Prothrombin Time 13.9 Prothromb Time International Ratio 1.4 Radiology Last Impressions Abdomen/Pelvis CT 08/04/17 0000 Signed Impressions: Service Date/Time: July 18:21 - CONCLUSION: 1. Right inguinal hernia containing loop of small bowel with associated at least partial small bowel obstruction. 2. Bilateral pleural effusions, left greater than right with basilar atelectasis and scarring and right pleural calcifications. Bety Villatoro MD Cardiovascular: Regular Lungs: Clear Abdomen: Non-distended, Non-tender, Other (incision c/d/i ), Post-op tenderness Extremities: No edema A/P Problem List: (1) Right groin mass ICD Codes: R19.09 - Other intra-abdominal and pelvic swelling, mass and lump Status: Acute (2) Incarcerated hernia ICD Codes: K46.0 - Unspecified abdominal hernia with obstruction, without gangrene Status: Acute (3) Complicated unilateral incarcerated femoral hernia ICD Codes: K41.30 - Unilateral femoral hernia, with obstruction, without gangrene, not specified as recurrent (4) Incarcerated femoral hernia ICD Codes: K41.30 - Unilateral femoral hernia, with obstruction, without gangrene, not specified as recurrent (5) Atrial fibrillation with RVR ICD Codes: I48.91 - Unspecified atrial fibrillation Status: Acute (6) Mechanical heart valve present ICD Codes: Z95.2 - Presence of prosthetic heart valve Assessment and Plan 82 year old male POD3 repair of incarcerated RIGHT femoral hernia; ex lap to evaluate bowel -Regular diet -+ BM -OOB and mobilize -May need Rehab -Okay to restart anticoagulation Attending Statement NOTE FOR SURGICAL ATTENDING, DR. BETY FRY I agree with above assessment and plan. The exam, history, and the medical decision-making described in the above note were completed with the assistance of the mid-level provider. I reviewed and agree with the findings presented. I attest that I had a [id number] encounter with the patient on the same day, and personally performed and documented my assessment and findings in the medical record. The following services were provided during this hospital visit: Chart data review, vital sign assessments/reviewing monitor data Review of consultations notes if present. Medication orders/review and/or management Ordering and/or reviewing lab tests Ordering and/or interpreting/reviewing x-rays and/or diagnostic studies Care of the patient and discussion of the patient with the care team Documentation time To help prompt me to consider important information that might be impacting today's encounter and assessment, information from prior notes written by myself or my colleagues may have been "brought forward/copy and pasted" into today's note. Nicki Germain Aug 08, 2017 17:12 Bety Fry MD Aug 08, 2017 19:29
[2017-08-08] MEDS: HEPARIN-D5W 25,000 U/250 ML 250 ML IV PRN (22:32)
[2017-08-09] VITALS (7 sets, daily range): BP systolic 113–148; BP diastolic 54–84; PULSE 60–105; RESP 17–20; TEMP 97.8–98.8; O2SAT 93–97
[2017-08-09] MEDS: CHLORHEXIDINE GLUCONATE 2 % 1 PACK (2 CLOTHS) TOP SCH (04:00)
[2017-08-09 07:13] LABS: INTERNATIONAL NORMALIZED RATIO 1.9 RATIO; PROTHROMBIN TIME - PATIENT 18.9 SEC (9.8-11.6)
[2017-08-09 07:17] LABS: HEMATOCRIT 29.2 % (39.0-51.0); MEAN CELL VOLUME 101.8 FL (80.0-100.0); MEAN CORPUSCULAR HEMOGLOBIN 36.3 PG (27.0-34.0); MEAN CORPUSCULAR HGB CONC 35.7 % (32.0-36.0); PLATELET COUNT 209 TH/MM3 (150-450); RED BLOOD COUNT 2.86 MIL/MM3 (4.50-5.90); RED CELL DISTRIBUTION WIDTH 14.2 % (11.6-17.2); REVIEW FLAG FINAL; WHITE BLOOD COUNT 5.8 TH/MM3 (4.0-11.0)
[2017-08-09 07:39] LABS: BICARBONATE 28.9 MEQ/L (21.0-32.0); POTASSIUM 3.7 MEQ/L (3.5-5.1)
[2017-08-09] MEDS: LISINOPRIL 10 MG TAB PO SCH (08:01)
[2017-08-09] MEDS: HYDROmorphone HCL 2 MG TAB PO PRN (08:06)
[2017-08-09] MEDS ORDERED: DILTIAZEM-CD 180 MG CAP ER PO SCH (09:00)
[2017-08-09] MEDS ORDERED: METOPROLOL TARTRATE 25 MG TAB PO SCH (09:45)
--- NOTE | 2017-08-09 14:56 | PD.CARD.PN ---
Subjective Subjective Remarks 18 beat run asymptomatic NSVT overnight. Started metoprolol. HR decreased to the 40s. (Silvia Arce) Objective Medications Current Medications Medications (Trade) Dose Ordered Sig/Jani Route Start Time Stop Time Status Last Admin (Zofran Inj) 4 mg Q6H PRN IV PUSH 08/04/17 19:30 08/05/17 01:01 (Duoneb Neb) 1 ampule Q2HR NEB PRN INH 08/04/17 19:30 Miscellaneous Information 1 Q361D XX 08/04/17 19:30 (Chlorhexidine 2% Cloth) 3 pack Taper DAILY@04 TOP 08/05/17 04:00 08/01/18 03:59 (Chlorhexidine 2% Cloth) 3 pack UNSCH PRN TOP 08/04/17 19:30 (Dilaudid Pf Inj) 0.5 mg Q4H PRN IV PUSH 08/04/17 23:15 08/08/17 15:00 (Coumadin) 2.5 mg DAILY@16 PO 08/06/17 16:00 08/08/17 15:03 Heparin Sodium/ Dextrose 250 ml @ 7.75 mls/hr TITRATE PRN IV 08/06/17 12:15 08/08/17 22:32 Pharmacy Profile Note 0 ml @ 0 mls/hr UNSCH OTHER 08/06/17 12:15 (Dilaudid) 1 mg Q4H PRN PO 08/07/17 14:15 08/09/17 08:06 (Narcan Inj) 0.4 mg UNSCH PRN IV PUSH 08/07/17 14:15 (Cardizem Cd) 360 mg DAILY PO 08/09/17 09:00 08/09/17 08:01 (Lopressor) 25 mg Q12HR PO 08/09/17 09:45 08/09/17 10:20 Vital Signs / I&O Vital Signs Date Time Temp Pulse Resp B/P (MAP) Pulse Ox O2 Delivery O2 Flow Rate FiO2 08/09/17 12:06 97.9 70 18 113/54 (73) 95 08/09/17 08:06 98.1 105 17 148/84 (105) 94 08/09/17 08:00 Room Air 08/09/17 08:00 92 08/09/17 04:00 92 08/09/17 04:00 98.4 92 18 148/77 (100) 97 08/09/17 00:00 98.8 83 19 140/78 (98) 96 08/09/17 00:00 87 08/08/17 20:00 Room Air 08/08/17 20:00 102 08/08/17 20:00 98.1 103 22 154/76 (102) 94 08/08/17 16:00 98.3 104 17 173/89 (117) 94 I/O 08/08/17 08/08/17 08/08/17 08/09/17 08/09/17 08/09/17 07:00 15:00 23:00 07:00 15:00 23:00 Intake Total 808 ml 250 ml 240 ml Output Total 600 ml 600 ml Balance 208 ml 250 ml -360 ml Intake Oral 480 ml 240 ml IV Total 328 ml 250 ml Output Urine Total 600 ml 600 ml # Bowel Movements 0 Physical Exam GENERAL: Elderly male in bed, mildly confused SKIN: Warm and dry. HEAD: Normocephalic. EYES: No scleral icterus. No injection or drainage. NECK: Supple, trachea midline. CARDIOVASCULAR: Irreg irreg, reg rate RESPIRATORY: Breath sounds equal bilaterally. No accessory muscle use. GASTROINTESTINAL: Abdomen soft, non-tender, nondistended. MUSCULOSKELETAL: No cyanosis, or edema. BACK: Nontender without obvious deformity. Laboratory Laboratory Tests Test 08/09/17 05:35 White Blood Count 5.8 TH/MM3 Red Blood Count 2.86 MIL/MM3 Hemoglobin 10.4 GM/DL Hematocrit 29.2 % Mean Corpuscular Volume 101.8 FL Mean Corpuscular Hemoglobin 36.3 PG Mean Corpuscular Hemoglobin Concent 35.7 % Red Cell Distribution Width 14.2 % Platelet Count 209 TH/MM3 Mean Platelet Volume 8.2 FL Prothrombin Time 18.9 SEC Prothromb Time International Ratio 1.9 RATIO Activated Partial Thromboplast Time 55.0 SEC Blood Urea Nitrogen 17 MG/DL Creatinine 0.71 MG/DL Random Glucose 103 MG/DL Calcium Level 8.5 MG/DL Sodium Level 133 MEQ/L Potassium Level 3.7 MEQ/L Chloride Level 98 MEQ/L Carbon Dioxide Level 28.9 MEQ/L Anion Gap 6 MEQ/L Estimat Glomerular Filtration Rate 106 ML/MIN (Silvia Arce) Assessment and Plan Assessment and Plan Incarcerated hernia and small bowel obstruction POD #4 for open laparotomy Mechanical aortic valve - on coumadin prior to admission INR goal 2.5-3.5,. INR 1.9 today Atrial fibrillation/atrial flutter NSVT Carotid stenosis, recent carotid endarterectomy HTN HLD PLAN: Metoprolol add this morning. Developed bradycardia. Will decrease metoprolol and Cardizem. Pending mag and limited echo to eval EF OOB to chair Continue heparin/coumadin bridge. The patient was seen and evaluated by Dr Pugh who completed face to face encounter, physical exam and participated in evaluation and management. (Silvia Arce) Assessment and Plan The exam, history, and the medical decision-making described in the above note were completed with the assistance of the mid-level provider. I reviewed and agree with the findings presented. I attest that I had a [id number] encounter with the patient on the same day, and personally performed and documented my assessment and findings in the medical record. Discussed with RN will continue to anticoagulate, ? d/c tomorrow (Osbaldo Pugh MD) Silvia Arce Aug 09, 2017 14:56 Osbaldo Pugh MD Aug 09, 2017 15:01
[2017-08-09] MEDS ORDERED: PILL SPLITTER OTHER PRN (15:15)
[2017-08-09] MEDS: WARFARIN SOD 2.5 MG TAB PO SCH (16:04)
[2017-08-09] MEDS: HYDROmorphone HCL PF 2 MG/ML VIAL IV PUSH PRN (16:04)
--- NOTE | 2017-08-09 16:17 | ECHRPT ---
Indication: EF assesment of CHF CONCLUSIONS The left ventricular systolic function is normal with an estimated ejection fraction in the range of 55-60%. Trace mitral valve regurgitation. A moderate left sided pleural effusion is noted. BP: 148 / 84 HR: 105 Rhythm: Sinus MEASUREMENTS (Male / Female) Normal Values Technical Quality:Good 2D ECHO LV Diastolic Diameter PLAX 4.4 cm 4.2 - 5.9 / 3.9 - 5.3 cm LV Systolic Diameter PLAX 3.5 cm IVS Diastolic Thickness 0.9 cm 0.6 - 1.0 / 0.6 - 0.9 cm LVPW Diastolic Thickness 1.1 cm 0.6 - 1.0 / 0.6 - 0.9 cm LV Relative Wall Thickness 0.5 LV Ejection Fraction MOD BP 53.6 % >= 55 % LV Cardiac Index MOD BP 2624.8 cm/minm LV Ejection Fraction MOD 4C 53.9 % LV Cardiac Index MOD 4C 2799.8 cm/minm LV Ejection Fraction 4C AL 54.3 % LV Cardiac Index 4C AL 2814.0 cm/minm LV Ejection Fraction MOD 2C 50.7 % LV Cardiac Index MOD 2C 2216.5 cm/minm LV Ejection Fraction 2C AL 48.3 % LV Cardiac Index 2C AL 2169.2 cm/minm FINDINGS LEFT VENTRICLE The left ventricular systolic function is normal with an estimated ejection fraction in the range of 55-60%. Wall thickness is measured at the upper limits of normal. Normal left ventricular size. RIGHT VENTRICLE Normal right ventricular size and systolic function. LEFT ATRIUM The left atrial size is mildly dilated. RIGHT ATRIUM The right atrial size is normal. ATRIAL SEPTUM Normal atrial septal thickness. AORTA The aortic root and proximal ascending aorta are normal in size on limited imaging. MITRAL VALVE Grossly normal mitral valve. Mild mitral annular calcification. Trace mitral valve regurgitation. AORTIC VALVE The aortic valve is not well visualized. TRICUSPID VALVE Grossly normal tricuspid valve. No tricuspid valve stenosis or regurgitation. PULMONARY VALVE The pulmonary valve is not well visualized. VESSELS The inferior vena cava is normal in size. PERICARDIUM A moderate left sided pleural effusion is noted. Pola Armendariz DO (Electronically Signed) Final Date:09 August 2017 16:15
--- NOTE | 2017-08-09 17:47 | HHI.PR ---
Subjective Remarks Follow-up on anticoagulation for mechanical valve. States he is pretty good. Events noted developed NSVT overnight. He was asymptomatic. He was started on Lopressor which cause bradycardia. Cardiology has decrease Lopressor as well as Cardizem and discontinue lisinopril. Echocardiogram showed preserved ejection fraction but with moderate left pleural effusion. Denies shortness of breath currently on room air. Objective Vitals Vital Signs Date Time Temp Pulse Resp B/P (MAP) Pulse Ox O2 Delivery O2 Flow Rate FiO2 08/09/17 16:05 98.0 60 18 120/55 (76) 96 08/09/17 12:06 97.9 70 18 113/54 (73) 95 08/09/17 08:06 98.1 105 17 148/84 (105) 94 08/09/17 08:00 Room Air 08/09/17 08:00 92 08/09/17 04:00 92 08/09/17 04:00 98.4 92 18 148/77 (100) 97 08/09/17 00:00 98.8 83 19 140/78 (98) 96 08/09/17 00:00 87 08/08/17 20:00 Room Air 08/08/17 20:00 102 08/08/17 20:00 98.1 103 22 154/76 (102) 94 I/O 08/08/17 08/08/17 08/08/17 08/09/17 08/09/17 08/09/17 07:00 15:00 23:00 07:00 15:00 23:00 Intake Total 808 ml 250 ml 240 ml Output Total 600 ml 600 ml Balance 208 ml 250 ml -360 ml Intake Oral 480 ml 240 ml IV Total 328 ml 250 ml Output Urine Total 600 ml 600 ml # Bowel Movements 0 Result Diagram: 08/09/1735 08/09/17 0535 Objective Remarks General: Elderly male in no acute distress. Skin is warm no lesions Heart: Irregularly irregular with metallic click Lungs: Clear to auscultation bilaterally. No wheezes, rales, or rhonchi. Breathing is nonlabored. Abdomen: Soft, nondistended with abdominal binder. Extremities: No lower extremity edema. Psych: Awake and alert Procedures Repair of right incarcerated femoral hernia with plug. A/P Problem List: (1) Incarcerated hernia ICD Code: K46.0 - Unspecified abdominal hernia with obstruction, without gangrene Status: Acute Assessment and Plan 1. Abdominal pain, incarcerated hernia: Status post surgical repair. Appreciate postoperative management by general surgery. Continue pain control with IV and by mouth Dilaudid6. Tolerating a regular diet. Positive bowel movement 2. Coumadin coagulopathy: Resolved. INR is now subtherapeutic. INR 1.9. Continue Coumadin bridge with heparin drip 3. Mechanical aortic valve replacement: Patient on anticoagulation 4. Hypertension: Continue Lopressor and Cardizem 5. Hyperglycemia. A1c 5.1 6. Deconditioning. Continue physical therapy and increase activity 7. NSVT. EF preserved on echo. Continue lower doses of beta aas and Cardizem. 8. Left pleural effusion. Obtain chest x-ray. DVT prophylaxis: SCDs. Heparin drip and Coumadin Discharge Planning Not ready for discharge requiring heparin drip Thad Alatorre MD Aug 09, 2017 17:47
[2017-08-09] MEDS: METOPROLOL TARTRATE 25 MG TAB PO SCH (21:18)
[2017-08-09] MEDS: HEPARIN-D5W 25,000 U/250 ML 250 ML IV PRN (21:27)
[2017-08-10] VITALS: BP 121/60; PULSE 59; PULSE 63; RESP 21; TEMP 97.8; O2SAT 94
[2017-08-10] MEDS: CHLORHEXIDINE GLUCONATE 2 % 1 PACK (2 CLOTHS) TOP SCH (02:43)
[2017-08-10 04:00] VITALS: BP 144/65; PULSE 60; PULSE 69; RESP 20; TEMP 97.6; O2SAT 93
--- NOTE | 2017-08-10 06:01 | RADRPT ---
EXAM DATE/TIME: 08/10/2017 04:53 [facility] COMPARISON: CHEST SINGLE AP, July 23, 2009, 9:11. INDICATIONS : Shortness of breath. MEDICAL HISTORY : Hypertension. Cardiovascular disease. SURGICAL HISTORY : Carotid endarterectomy. Inguinal hernia repair.Aortic valve replacement. ENCOUNTER: Subsequent ACUITY: 2 days PAIN SCORE: 0/10 LOCATION: Bilateral chest FINDINGS: The patient is status post sternotomy. The heart size is normal. There is a mild left pleural effusio n. Lungs appear grossly clear. CONCLUSION: Mild left pleural effusion. Vinicius Garcia MD on August 10, 2017 at 5:59 Board Certified Radiologist. This report was verified electronically.
[2017-08-10 06:39] LABS: HEMATOCRIT 26.9 % (39.0-51.0); MEAN CELL VOLUME 102.2 FL (80.0-100.0); MEAN CORPUSCULAR HEMOGLOBIN 36.6 PG (27.0-34.0); MEAN CORPUSCULAR HGB CONC 35.8 % (32.0-36.0); PLATELET COUNT 196 TH/MM3 (150-450); RED BLOOD COUNT 2.63 MIL/MM3 (4.50-5.90); RED CELL DISTRIBUTION WIDTH 14.1 % (11.6-17.2); REVIEW FLAG FINAL; WHITE BLOOD COUNT 5.7 TH/MM3 (4.0-11.0)
[2017-08-10 06:49] LABS: BICARBONATE 31.4 MEQ/L (21.0-32.0); POTASSIUM 3.8 MEQ/L (3.5-5.1)
[2017-08-10 06:53] LABS: INTERNATIONAL NORMALIZED RATIO 2.6 RATIO; PROTHROMBIN TIME - PATIENT 26.2 SEC (9.8-11.6)
[2017-08-10 07:00] VITALS: PULSE 87
[2017-08-10 08:06] VITALS: BP 123/75; PULSE 82; RESP 18; TEMP 98.2; O2SAT 95
[2017-08-10] MEDS ORDERED: DILT240C44 PO (08:29)
[2017-08-10] MEDS ORDERED: METO25TA3 PO (08:29)
[2017-08-10] MEDS: METOPROLOL TARTRATE 25 MG TAB PO SCH (08:39)
[2017-08-10] MEDS: HYDROmorphone HCL 2 MG TAB PO PRN (08:45)
[2017-08-10] MEDS ORDERED: LISINOPRIL 5 MG TAB PO SCH (09:00)
[2017-08-10] MEDS ORDERED: DILTIAZEM-CD 240 MG CAP ER PO SCH (09:00)
--- NOTE | 2017-08-10 09:32 | HHI.PR ---
cc: Bety Fry MD Subjective Subjective Notes DAILY PROGRESS NOTE FOR SURGICAL ATTENDING, DR. BETY FRY I need to eat Objective Vitals/I&O Vital Signs Date Time Temp Pulse Resp B/P (MAP) Pulse Ox O2 Delivery O2 Flow Rate FiO2 08/10/17 08:06 98.2 82 18 123/75 (91) 95 08/09/17 20:00 Room Air 08/07/17 09:12 3.00 Labs Laboratory Tests Test 08/10/17 06:07 08/10/17 06:17 White Blood Count 5.7 Red Blood Count 2.63 Hemoglobin 9.6 Hematocrit 26.9 Mean Corpuscular Volume 102.2 Mean Corpuscular Hemoglobin 36.6 Mean Corpuscular Hemoglobin Concent 35.8 Red Cell Distribution Width 14.1 Platelet Count 196 Mean Platelet Volume 8.3 Prothrombin Time 26.2 Prothromb Time International Ratio 2.6 Activated Partial Thromboplast Time 70.0 Blood Urea Nitrogen 14 Creatinine 0.69 Random Glucose 101 Calcium Level 7.9 Sodium Level 133 Potassium Level 3.8 Chloride Level 96 Carbon Dioxide Level 31.4 Anion Gap 6 Estimat Glomerular Filtration Rate 110 Radiology Last Impressions Abdomen/Pelvis CT 08/04/17 0000 Signed Impressions: Service Date/Time: July 18:21 - CONCLUSION: 1. Right inguinal hernia containing loop of small bowel with associated at least partial small bowel obstruction. 2. Bilateral pleural effusions, left greater than right with basilar atelectasis and scarring and right pleural calcifications. Bety Villatoro MD Cardiovascular: Regular Lungs: Clear Abdomen: Post-op tenderness, BS normal Extremities: Perfused Wound Wound : Wound Location: Abdomen Appearance: Clean & Dry Dressing: Dry (right groin and midline wound clean and dry healing) A/P Problem List: (1) Right groin mass ICD Codes: R19.09 - Other intra-abdominal and pelvic swelling, mass and lump Status: Acute (2) Incarcerated hernia ICD Codes: K46.0 - Unspecified abdominal hernia with obstruction, without gangrene Status: Acute (3) Complicated unilateral incarcerated femoral hernia ICD Codes: K41.30 - Unilateral femoral hernia, with obstruction, without gangrene, not specified as recurrent (4) Incarcerated femoral hernia ICD Codes: K41.30 - Unilateral femoral hernia, with obstruction, without gangrene, not specified as recurrent (5) Atrial fibrillation with RVR ICD Codes: I48.91 - Unspecified atrial fibrillation Status: Acute (6) Mechanical heart valve present ICD Codes: Z95.2 - Presence of prosthetic heart valve Assessment and Plan 82 year-old gentleman status post incarcerated femoral hernia Doing well On anticoagulation Advance diet as tolerated and activities Plan to remove andre and midline wound on Tuesday or Tuesday Okay to shower Attending Statement NOTE FOR SURGICAL ATTENDING, DR. BETY FRY I attest that I had a [id number] encounter with the patient on the same day, and personally performed and documented my assessment and findings in the medical record. The following services were provided during this hospital visit: Chart data review, vital sign assessments/reviewing monitor data Review of consultations notes if present. Medication orders/review and/or management Ordering and/or reviewing lab tests Ordering and/or interpreting/reviewing x-rays and/or diagnostic studies Care of the patient and discussion of the patient with the care team Documentation time To help prompt me to consider important information that might be impacting today's encounter and assessment, information from prior notes written by myself or my colleagues may have been "brought forward/copy and pasted" into today's note. Bety Fry MD Aug 10, 2017 09:32
[2017-08-10] MEDS ORDERED: ACETAMINOPHEN/HYDROcodone 325 MG/5 MG TAB PO PRN (09:45)
--- NOTE | 2017-08-10 12:53 | HHI.DS ---
Discharge Summary Admission Date Aug 04, 2017 at 19:27 Discharge Date: Aug 10, 2017 Admitting Diagnosis Incarcerated hernia, partial small bowel obstruction (1) Incarcerated hernia ICD Code: K46.0 - Unspecified abdominal hernia with obstruction, without gangrene Diagnosis: Principal Status: Acute Procedures Repair of right incarcerated femoral hernia with plug. Brief History - From Admission This is an 82yM with history of aortic valve replacement on chronic coumadin therapy who presents with 2 hours of right inguinal pain. He was found to have incarcerated hernia by CT evidence and clinical exam. He denies any symptoms of nausea, vomiting, but does endorse worsening abdominal pain. General surgery was consulted and is planning to take him for urgent operation in the morning. He has a supratherapeutic INR at 4.3. we have been asked to medically optimize the patient prior to urgent surgery. Of note, he does have a history of a recent right CEA ~ 2 weeks ago at [facility], which he had without complication. The patient is a poor historian and at times has trouble with his medical history. The patient states that his human resources trainee is Dr. Pugh and clears him for surgery before every case. He states he does not routinely walk up stairs, but he does state that yesterday he went to the mall and walked around "all day with no problem at all." denies any chest pain, dyspnea on exertion, shortness of breath. no changes in exercise tolerance, although he does remark that he does not find a need to climb stairs much. He does have a mechanical aortic valve and has recently been re-coumadinized from his CEA. CBC/BMP: 08/10/17 0607 08/10/17 0617 Significant Findings Laboratory Tests Test 08/07/17 21:34 08/08/17 05:20 08/08/17 12:00 08/09/17 05:35 Activated Partial Thromboplast Time 32.2 SEC (24.3-30.1) 47.6 SEC (24.3-30.1) 46.1 SEC (24.3-30.1) 55.0 SEC (24.3-30.1) Red Blood Count 2.90 MIL/MM3 (4.50-5.90) 2.86 MIL/MM3 (4.50-5.90) Hemoglobin 10.5 GM/DL (13.0-17.0) 10.4 GM/DL (13.0-17.0) Hematocrit 29.7 % (39.0-51.0) 29.2 % (39.0-51.0) Mean Corpuscular Volume 102.2 FL (80.0-100.0) 101.8 FL (80.0-100.0) Mean Corpuscular Hemoglobin 36.2 PG (27.0-34.0) 36.3 PG (27.0-34.0) Random Glucose 125 MG/DL (74-106) Sodium Level 133 MEQ/L (136-145) 133 MEQ/L (136-145) Chloride Level 97 MEQ/L (98-107) Prothrombin Time 13.9 SEC (9.8-11.6) 18.9 SEC (9.8-11.6) Test 08/10/17 06:07 08/10/17 06:17 Red Blood Count 2.63 MIL/MM3 (4.50-5.90) Hemoglobin 9.6 GM/DL (13.0-17.0) Hematocrit 26.9 % (39.0-51.0) Mean Corpuscular Volume 102.2 FL (80.0-100.0) Mean Corpuscular Hemoglobin 36.6 PG (27.0-34.0) Prothrombin Time 26.2 SEC (9.8-11.6) Activated Partial Thromboplast Time 70.0 SEC (24.3-30.1) Calcium Level 7.9 MG/DL (8.5-10.1) Sodium Level 133 MEQ/L (136-145) Chloride Level 96 MEQ/L (98-107) Imaging Last Impressions Chest X-Ray 08/10/17 0600 Signed Impressions: Service Date/Time: Thursday, August 10, 2017 04:53 - CONCLUSION: Mild left pleural effusion. Vinicius Garcia MD Abdomen/Pelvis CT 08/04/17 0000 Signed Impressions: Service Date/Time: July 18:21 - CONCLUSION: 1. Right inguinal hernia containing loop of small bowel with associated at least partial small bowel obstruction. 2. Bilateral pleural effusions, left greater than right with basilar atelectasis and scarring and right pleural calcifications. Manjinder Villatoro MD PE at Discharge General: Elderly male in no acute distress. Skin is warm no lesions Heart: Irregularly irregular with metallic click Lungs: Clear to auscultation bilaterally. No wheezes, rales, or rhonchi. Breathing is nonlabored. Abdomen: Soft, nondistended with abdominal binder. Extremities: No lower extremity edema. Psych: Awake and alert Hospital Course 1. Abdominal pain, incarcerated hernia: Status post surgical repair. Appreciate postoperative management by general surgery. Continue pain control with Dilaudid. Tolerating diet. 2. Coumadin coagulopathy: Resolved. INR is now therapeutic. Continue Coumadin dc heparin drip 3. Mechanical aortic valve replacement: Patient on anticoagulation 4. Hypertension: Continue Lopressor and Cardizem 5. Hyperglycemia. A1c 5.1 6. Deconditioning. Continue physical therapy and increase activity 7. NSVT. EF preserved on echo. Continue lower doses of beta asa and Cardizem. 8. Left pleural effusion on ECHO. Chest x-ray with mild left pleural effusion. Denies shortness of breath. Currently on room air DVT prophylaxis: SCDs. Coumadin Pt Condition on Discharge: Stable Discharge Disposition: Discharge to SNF Discharge Time: > 30 minutes Discharge Instructions DIET: Follow Instructions for: Heart Healthy Diet Activities you can perform: Regular-No Restrictions Activities to Avoid: Driving Follow up Referrals: Cardiology - 1 Week PCP Follow-up - 1 Week SNF/INTERMEDIATE/ with [facility] New Orders: PT/INR Thad Alatorre MD Aug 10, 2017 12:53
== END 2017-08-10 12:14 | DRG 351 ==
LOC: PHED 16:46 → PHEDA 19:27 → N04A 08-05 03:29
PROVIDERS: ADMIT Internal Medicine; ATTEND Internal Medicine
PROC: 30233K1 Transfusion of Nonautologous Frozen Plasma into Peripheral Vein, Percutaneous Approach (ICD-10-PCS; 2017-08-04)
PROC: 0YQ70ZZ Repair Right Femoral Region, Open Approach (ICD-10-PCS; principal; 2017-08-05 06:52)
DX: K41.30 Unilateral femoral hernia, with obstruction, without gangrene, not specified as recurrent (principal); J90 Pleural effusion, not elsewhere classified; I47.2 Ventricular tachycardia; I48.91 Unspecified atrial fibrillation; I10 Essential (primary) hypertension; R79.1 Abnormal coagulation profile; T45.515A Adverse effect of anticoagulants, initial encounter; E78.5 Hyperlipidemia, unspecified; K66.0 Peritoneal adhesions (postprocedural) (postinfection); R73.9 Hyperglycemia, unspecified; R00.1 Bradycardia, unspecified; T44.7X5A Adverse effect of beta-adrenoreceptor antagonists, initial encounter; Y92.239 Unspecified place in hospital as the place of occurrence of the external cause; Z79.01 Long term (current) use of anticoagulants; Z86.73 Personal history of transient ischemic attack (TIA), and cerebral infarction without residual deficits; Z88.6 Allergy status to analgesic agent; Z95.2 Presence of prosthetic heart valve
CPT/HCPCS: 36415; 36430; 71010; 74177; 80048; 81001; 83036; 83735; 85014; 85018; 85025; 85027; 85610; 85730; 86850; 86900; 86901; 86927; 88302; 93005; 93308; 94150; 94640; 94667; 94668; 96374; 96375; C1781; J0360; J0690; J1100; J1170; J1644; J1940; J2270; J2370; J2405; J2710; J3010; J3430; J7050; P9017; Q9967

== ENCOUNTER → 2017-08-04 | Outpatient (CLI) | payer MEDICARE, BC ==
[2017-08-04 10:06] LABS: INTERNATIONAL NORMALIZED RATIO 4.8 RATIO; PROTHROMBIN TIME - PATIENT 48.4 SEC (9.8-11.6)
== END ==
LOC: PLAB 06:40
PROVIDERS: ATTEND Internal Medicine Cardiovascular Disease
DX: Z95.2 Presence of prosthetic heart valve (principal)
CPT/HCPCS: 36415; 85610

== ENCOUNTER → 2017-09-20 | Outpatient (CLI) | payer MEDICARE, BC ==
[~2017-09-20] MED LIST changes: +DILA2TAB4 PO; +DILT240C44 PO; -DRON400 PO; +METO25TA3 PO; -PRIN10TA PO; -TOPR50TA PO; +WARF-18 PO; -WARF2.5 PO; -WARF5TAB PO
[2017-09-20 09:11] LABS: INTERNATIONAL NORMALIZED RATIO 5.4 RATIO; PROTHROMBIN TIME - PATIENT 54.3 SEC (9.8-11.6)
== END ==
LOC: PLAB 06:57
PROVIDERS: ATTEND Internal Medicine Cardiovascular Disease
DX: Z95.2 Presence of prosthetic heart valve (principal)
CPT/HCPCS: 36415; 85610

== ENCOUNTER → 2017-09-26 | Outpatient (CLI) | payer MEDICARE, BC ==
[2017-09-26 08:28] LABS: INTERNATIONAL NORMALIZED RATIO 3.1 RATIO
== END ==
LOC: PLAB 06:57
PROVIDERS: ATTEND Internal Medicine Cardiovascular Disease
DX: Z95.2 Presence of prosthetic heart valve (principal)
CPT/HCPCS: 36415; 85610

== ENCOUNTER → 2017-10-03 | Outpatient (CLI) | payer MEDICARE, BC ==
[2017-10-03 08:56] LABS: INTERNATIONAL NORMALIZED RATIO 4.6 RATIO
== END ==
LOC: PLAB 06:45
PROVIDERS: ATTEND Internal Medicine Cardiovascular Disease
DX: Z95.2 Presence of prosthetic heart valve (principal)
CPT/HCPCS: 36415; 85610

== ENCOUNTER → 2017-10-10 | Outpatient (CLI) | payer MEDICARE, BC ==
[2017-10-10 08:59] LABS: INTERNATIONAL NORMALIZED RATIO 2.9 RATIO; PROTHROMBIN TIME - PATIENT 29.7 SEC (9.8-11.6)
== END ==
LOC: PLAB 06:39
PROVIDERS: ATTEND Internal Medicine Cardiovascular Disease
DX: Z95.2 Presence of prosthetic heart valve (principal)
CPT/HCPCS: 36415; 85610

== ENCOUNTER → 2017-10-19 | Outpatient (CLI) | payer MEDICARE, BC ==
[2017-10-19 08:40] LABS: INTERNATIONAL NORMALIZED RATIO 5.9 RATIO; PROTHROMBIN TIME - PATIENT 58.9 SEC (9.8-11.6)
== END ==
LOC: PLAB 06:47
PROVIDERS: ATTEND Internal Medicine Cardiovascular Disease
DX: Z95.2 Presence of prosthetic heart valve (principal)
CPT/HCPCS: 36415; 85610

== ENCOUNTER → 2017-10-21 | Outpatient (CLI) | payer MEDICARE, BC ==
[2017-10-21 09:10] LABS: INTERNATIONAL NORMALIZED RATIO 3.8 RATIO; PROTHROMBIN TIME - PATIENT 38.1 SEC (9.8-11.6)
== END ==
LOC: PLAB 06:40
PROVIDERS: ATTEND Internal Medicine Cardiovascular Disease
DX: Z95.2 Presence of prosthetic heart valve (principal)
CPT/HCPCS: 36415; 85610

== ENCOUNTER → 2017-10-31 | Outpatient (CLI) | payer MEDICARE, BC ==
[2017-10-31 09:16] LABS: INTERNATIONAL NORMALIZED RATIO 2.7 RATIO; PROTHROMBIN TIME - PATIENT 27.4 SEC (9.8-11.6)
== END ==
LOC: PLAB 06:48
PROVIDERS: ATTEND Internal Medicine Cardiovascular Disease
DX: Z95.2 Presence of prosthetic heart valve (principal)
CPT/HCPCS: 36415; 85610

== ENCOUNTER → 2017-11-08 | Outpatient (CLI) | payer MEDICARE, BC ==
[2017-11-08 09:43] LABS: INTERNATIONAL NORMALIZED RATIO 3.8 RATIO; PROTHROMBIN TIME - PATIENT 38.1 SEC (9.8-11.6)
== END ==
LOC: PLAB 06:41
PROVIDERS: ATTEND Internal Medicine Cardiovascular Disease
DX: Z95.2 Presence of prosthetic heart valve (principal)
CPT/HCPCS: 36415; 85610

== ENCOUNTER → 2017-11-15 | Outpatient (CLI) | payer MEDICARE, BC ==
[2017-11-15 10:04] LABS: INTERNATIONAL NORMALIZED RATIO 3.8 RATIO; PROTHROMBIN TIME - PATIENT 38.2 SEC (9.8-11.6)
== END ==
LOC: PLAB 07:02
PROVIDERS: ATTEND Internal Medicine Cardiovascular Disease
DX: Z95.2 Presence of prosthetic heart valve (principal)
CPT/HCPCS: 36415; 85610

== ENCOUNTER → 2017-11-22 | Outpatient (CLI) | payer MEDICARE, BC ==
[2017-11-22 09:24] LABS: PROTHROMBIN TIME - PATIENT 30.1 SEC (9.8-11.6)
== END ==
LOC: PLAB 06:42
PROVIDERS: ATTEND Internal Medicine Cardiovascular Disease
DX: Z95.2 Presence of prosthetic heart valve (principal)
CPT/HCPCS: 36415; 85610

== ENCOUNTER → 2018-01-05 | Outpatient (CLI) | DX: Z95.2 Presence of prosthetic heart valve (principal) ==

== ENCOUNTER → 2018-01-10 | Outpatient (CLI) | payer MEDICARE, BC ==
[2018-01-10 08:46] LABS: INTERNATIONAL NORMALIZED RATIO 3.5 RATIO
== END ==
LOC: PLAB 06:43
PROVIDERS: ATTEND Internal Medicine Cardiovascular Disease
DX: Z95.2 Presence of prosthetic heart valve (principal)
CPT/HCPCS: 36415; 85610

== ENCOUNTER → 2018-01-24 | Outpatient (CLI) | payer MEDICARE, BC ==
[2018-01-24 09:43] LABS: INTERNATIONAL NORMALIZED RATIO 1.8 RATIO; PROTHROMBIN TIME - PATIENT 18.7 SEC (9.8-11.6)
== END ==
LOC: PLAB 06:57
PROVIDERS: ATTEND Internal Medicine Cardiovascular Disease
DX: Z95.2 Presence of prosthetic heart valve (principal)
CPT/HCPCS: 36415; 85610

== ENCOUNTER → 2018-01-26 | Outpatient (CLI) | payer MEDICARE, BC ==
[2018-01-26 09:29] LABS: INTERNATIONAL NORMALIZED RATIO 2.1 RATIO; PROTHROMBIN TIME - PATIENT 20.9 SEC (9.8-11.6)
== END ==
LOC: PLAB 07:15
PROVIDERS: ATTEND Internal Medicine Cardiovascular Disease
DX: Z95.2 Presence of prosthetic heart valve (principal)
CPT/HCPCS: 36415; 85610

== ENCOUNTER → 2018-02-02 | Outpatient (CLI) | payer MEDICARE, BC ==
[2018-02-02 08:42] LABS: INTERNATIONAL NORMALIZED RATIO 2.2 RATIO; PROTHROMBIN TIME - PATIENT 22.1 SEC (9.8-11.6)
== END ==
LOC: PLAB 06:52
PROVIDERS: ATTEND Internal Medicine Cardiovascular Disease
DX: Z95.2 Presence of prosthetic heart valve (principal)
CPT/HCPCS: 36415; 85610

== ENCOUNTER → 2018-02-09 | Outpatient (CLI) | payer MEDICARE, BC ==
[2018-02-09 09:20] LABS: PROTHROMBIN TIME - PATIENT 20.3 SEC (9.8-11.6)
== END ==
LOC: PLAB 06:56
PROVIDERS: ATTEND Internal Medicine Cardiovascular Disease
DX: Z95.2 Presence of prosthetic heart valve (principal)
CPT/HCPCS: 36415; 85610

== ENCOUNTER → 2018-02-16 | Outpatient (CLI) | payer MEDICARE, BC ==
[2018-02-16 08:20] LABS: INTERNATIONAL NORMALIZED RATIO 3.2 RATIO; PROTHROMBIN TIME - PATIENT 31.8 SEC (9.8-11.6)
== END ==
LOC: PLAB 06:30
PROVIDERS: ATTEND Internal Medicine Cardiovascular Disease
DX: Z95.2 Presence of prosthetic heart valve (principal)
CPT/HCPCS: 36415; 85610